=== PATIENT | male | born 1970 | race Caucasian/White ===

== ENCOUNTER 2017-02-01 21:57 | Emergency (ER) | payer SELFPAY ==
--- NOTE | 2017-02-01 22:28 | ERPHSYRPT ---
- History of Present Illness Time Seen by Provider: 02/01/17 22:02 Source: patient, family Exam Limitations: no limitations Patient Subjective Stated Complaint: pt states hes been having pain in his lower back increasing thru the day Triage Nursing Assessment: pt alert and oriented, answers questions approp. pt ambulatory with with steady gait noted. respirations nonlabored with lungs cta. lower ext strength wnl. pedal pulses, cap refil, and sensations wnl. Physician History: States he rode motorcycle yesterday, with pain onset today. No lifting, straining or stressful iodaclrvq2o on his back. He took a friend's Morphine and Xanax RN [facility]. Timing/Duration: today Method of Injury: unknown Quality: sharp Back Pain Location: lumbar spine Severity of Pain-Max: moderate Severity of Pain-Current: moderate Modifying Factors: Improves With: movement Associated Symptoms: denies symptoms, lower back pain, No urinary incontinence, No loss of bowel control, No problems urinating, No numbness in legs/feet, No weakness, No sensory/motor loss, No tingling in legs/feet, No muscle spasms Previous symptoms: no prior history Allergies/Adverse Reactions: No Known Drug Allergies Allergy (Unverified 02/01/17 23:17) Home Medications: No Home Meds 1 ea UD 02/01/17 [History] Hx Tetanus, Diphtheria Vaccination/Date Given: Yes Hx Influenza Vaccination/Date Given: No Hx Pneumococcal Vaccination/Date Given: No Immunizations Up to Date: Yes - Review of Systems Constitutional: No Symptoms Eyes: No Symptoms Ears, Nose, & Throat: No Symptoms Respiratory: No Symptoms Cardiac: No Symptoms Abdominal/Gastrointestinal: No Symptoms Genitourinary Symptoms: No Symptoms Musculoskeletal: Back Pain Skin: No Symptoms Neurological: No Symptoms Psychological: No Symptoms Endocrine: No Symptoms Hematologic/Lymphatic: No Symptoms Immunological/Allergic: No Symptoms - Past Medical History Pertinent Past Medical History: No - Past Surgical History Past Surgical History: Yes Gastrointestinal: Hemorrhoidectomy - Social History Smoking Status: Current every day smoker How long have you smoked: 20yrs Exposure to second hand smoke: Yes Drug Use: narcotics Patient Lives Alone: No - Nursing Vital Signs Temperature: 98.2 F Temperature Source: Oral Pulse Rate: 90 Respiratory Rate: 18 Pain Intensity: 10 - Physical Exam General Appearance: mild distress Eye Exam: eyes nml inspection Ears, Nose, Throat Exam: normal ENT inspection, pharynx normal Neck Exam: normal inspection, non-tender, supple, full range of motion Respiratory Exam: normal breath sounds, lungs clear, airway intact Cardiovascular Exam: regular rate/rhythm, normal heart sounds, normal peripheral pulses Gastrointestinal Exam: soft, normal bowel sounds Back Exam: normal inspection, normal range of motion, CVA tenderness, No vertebral tenderness Extremity Exam: normal inspection, normal range of motion, pelvis stable Neurologic Exam: alert, oriented x 3, cooperative Skin Exam: normal color, warm, dry SpO2 Interpretation: normal SpO2: 98 Oxygen Delivery: Room Air - Course Nursing assessment & vital signs reviewed: Yes - Radiology Exams L-Spine X-ray Interpretation: Interpreted by me, Reviewed by me, Negative, Nml Alignment Ordered Tests: Active Orders 24 hr Category Date Time Status Clean Catch Urine Specimen STAT Care 02/01/17 22:23 Inactive cath [Cath for Specimen-Straight] STAT Care 02/01/17 22:56 Active LUMBAR COMPLETE (MIN 4 VIEWS) Stat Exams 02/01/17 22:24 Taken CULTURE,URINE Stat Lab 02/01/17 22:59 Received UA W/ MICROSCOPIC Stat Lab 02/01/17 22:59 Completed Urine Triage Profile Stat Lab 02/01/17 22:59 Completed Lab/Rad Data: Laboratory Results 02/01/17 02/01/17 Range/Units 22:59 22:59 Ur Collection Type CLEAN CATCH Urine Color YELLOW (YELLOW) Urine Appearance SLIGHTLY CLOUDY (CLEAR) Urine pH 5.0 (5-6) Ur Specific [place] 1.020 (1.005-1.025) Urine Protein NEGATIVE (Negative) Urine Glucose (UA) NEGATIVE (NEGATIVE) mg/dL Urine Ketones TRACE (NEGATIVE) Urine Nitrite NEGATIVE (NEGATIVE) Urine Bilirubin SMALL (NEGATIVE) Urine Urobilinogen 0.2 (0-1) mg/dL Urine WBC (Auto) NEGATIVE (NEGATIVE) Urine RBC (Auto) TRACE-INTACT (0-5) Brendan/ul Urine Microscopic RBC 5-10 (0-2) /HPF Urine Microscopic WBC 5-10 (0-5) /HPF Ur Epithelial Cells MODERATE (FEW) /HPF Urine Bacteria FEW (NEGATIVE) /HPF Urine Mucus MODERATE (NEGATIVE) /HPF Urine Opiates Level POS. (NEGATIVE) Ur Methadone NEG. (NEGATIVE) Urine Barbiturates NEG. (NEGATIVE) Ur Phencyclidine (PCP) NEG. (NEGATIVE) Urine Amphetamine POS. (NEGATIVE) U Benzodiazepine Level POS. (NEGATIVE) Urine Cocaine NEG. (NEGATIVE) Urine Marijuana (THC) NEG. (NEGATIVE) Specimen Received 02/01/17 2300 - Progress Progress: improved Will see patient in: other (PCP 1 week) Counseled pt/family regarding: diagnosis, need for follow-up, rad results - Departure Time of Disposition: 22:45 Departure Disposition: Home Clinical Impression: Lumbar strain Qualifiers: Encounter type: initial encounter Qualified Code(s): S39.012A - Strain of muscle, fascia and tendon of lower back, initial encounter Condition: Stable Critical Care Time: No Referrals: DOCTOR,NO FAMILY [Primary Care Provider] - Instructions: Low Back Pain Prescriptions: Cyclobenzaprine HCl 10 mg [Cyclobenzaprine 10 MG] 10 mg PO TID PRN #12 tab Naproxen [Naprosyn] 500 mg PO BID #20 tablet
[2017-02-01 23:34] LABS: Bacteria FEW /HPF (NEGATIVE); COMPLETE URINE MICROSCOPIC? YES; Collection Type CLEAN CATCH; Epithelial Cells MODERATE /HPF (FEW); Mucus MODERATE /HPF (NEGATIVE)
[2017-02-01 23:35] LABS: ADD URINE CULTURE? YES (NO)
[2017-02-01 23:48] VITALS: BP 104/76; PULSE 96; O2SAT 96
--- NOTE | 2017-02-02 08:48 | XRAY ---
Indication: Low back pain. No known injury. Comparison: None 5 views of the lumbar spine demonstrates 4 lumbar vertebral segments with hypoplastic T12 ribs in normal alignment with minimal/mild L2-S1 degenerative disc disease as evidenced by disc space narrowing and endplate spurring. Also mild bilateral L4-S1 degenerative facet arthropathy and minimal aortic calcifications. No acute fracture, subluxation, or soft tissue abnormalities. Impression: Nonacute lumbar spine with chronic features.
== END 2017-02-01 23:48 | disposition home or self-care (01) ==
LOC: ED 21:57
DX: S39.012A Strain of muscle, fascia and tendon of lower back, initial encounter (principal); M54.5 Low back pain; X50.1XXA Overexertion from prolonged static or awkward postures, initial encounter
CPT/HCPCS: 72110; 80307; 81000; 87086; 99283; 99284; P9612

== ENCOUNTER 2022-10-26 17:03 | Emergency (ER) | payer OTHER ==
[2022-10-26] MEDS ORDERED: XYLOCAINE 1% HCL 20 ML MDV ONE ×2 (17:11→17:21)
[2022-10-26] MEDS ORDERED: XYLOCAINE 1% HCL 20 ML MDV IJ ONE (17:19)
[2022-10-26 17:20] VITALS: O2SAT 97
[2022-10-26] MEDS ORDERED: BACIGUENT PACKET TP ONE (17:20)
[2022-10-26] MEDS ORDERED: BACIGUENT PACKET ONE (17:22)
--- NOTE | 2022-10-26 17:48 | ERPHSYRPT ---
- History of Present Illness Source: patient Exam Limitations: no limitations Patient Subjective Stated Complaint: Laceration to left thumb. Patient states that a grinder and plater wheel blew apart on him and a piece of the grinding wheel was sticking out of his thumb, patient pulled the piece out of his thumb himself. Triage Nursing Assessment: Patient ambulated back to ER with gauze covering his thumb. Gauze removed. Laceration noted to left thumb measuring 0.5cm X 2.5cm. Small amount of active bleeding noted. Patient is able to feel nurse pressing on the end of his thumb. Patient states he can bend his thumb down but it is very hard for him to bring it back up once he bends it. Physician History: 52 yo WM w L 1st digit dorsal laceration after getting it caught in a grinder and plater at home. Pt is R handed and denies other injuries. Laceration is over the IP joint, and he is unable to extend distal phalange.Good distal capillary return and sensation. Tdap is up to date. Laceration 2.5 cm Occurred: just prior to arrival Method of Injury: incised (Account Development Specialist vs L 1st digit) Quality: constant Severity of Pain-Max: severe Severity of Pain-Current: moderate Extremities Pain Location: thumb: left Modifying Factors: Improves With: movement Associated Symptoms: none Allergies/Adverse Reactions: No Known Drug Allergies Allergy (Verified 10/26/22 17:08) Home Medications: No Home Meds [No Home Meds] 1 [facility] UD 02/01/17 [History] Hx Tetanus, Diphtheria Vaccination/Date Given: Yes Hx Influenza Vaccination/Date Given: No Hx Pneumococcal Vaccination/Date Given: No Immunizations Up to Date: Yes Travel Risk - International Travel Have you traveled outside of the country in past 3 weeks: No - Coronavirus Screening Are you exhibiting any of the following symptoms?: No Close contact with a COVID-19 positive Pt in past 14-21 Days: No - Vaccine Status Have you recieved a Covid-19 vaccination: No - Review of Systems Constitutional: No Symptoms Eyes: No Symptoms Ears, Nose, & Throat: No Symptoms Respiratory: No Symptoms Cardiac: No Symptoms Abdominal/Gastrointestinal: No Symptoms Genitourinary Symptoms: No Symptoms Skin: No Symptoms Neurological: No Symptoms Psychological: No Symptoms Endocrine: No Symptoms Hematologic/Lymphatic: No Symptoms Immunological/Allergic: No Symptoms - Past Medical History Pertinent Past Medical History: Yes Cardiac History: Hypertension - Past Surgical History Past Surgical History: Yes Gastrointestinal: Hemorrhoidectomy Musculoskeletal: Joint Replacement Other Surgical History: left hip - Social History Smoking Status: Current every day smoker How long have you smoked: 20yrs Exposure to second hand smoke: Yes Drug Use: none Patient Lives Alone: No - Nursing Vital Signs Nursing Vital Signs: Initial Vital Signs Temperature 97.5 F 10/26/22 17:10 Pulse Rate 90 10/26/22 17:10 Respiratory Rate 18 10/26/22 17:10 Blood Pressure 198/134 10/26/22 17:10 O2 Sat by Pulse Oximetry 97 10/26/22 17:10 Pain Scale Pain Intensity 0 Hypertensive - Physical Exam General Appearance: no apparent distress Eyes, Ears, Nose, Throat Exam: normal ENT inspection, TMs normal, pharynx normal, moist mucous membranes Neck Exam: normal inspection, non-tender, supple, full range of motion, No Brudzinski, No Kernig's, No meningismus, No carotid bruit Cardiovascular/Respiratory Exam: normal breath sounds, regular rate/rhythm, heart sounds normal Abdominal Exam: non-tender, soft Back Exam: normal inspection, normal range of motion, No vertebral tenderness Shoulder Exam: normal inspection, non-tender, no evidence of injury Elbow/Forearm Exam: normal inspection Wrist Exam: normal inspection Hand Exam: laceration (2cm laceration over IP joint/flexor tendon injury, unable to extend distal phalanyx/Good distal capillary return and sensation) Neuro/Tendon Exam: normal sensation, responds to pain, tendon injury visualized, No sensory deficit Mental Status Exam: alert, oriented x 3, cooperative Skin Exam: normal color, warm, dry, No rash SpO2 Interpretation: normal SpO2: 97 O2 Delivery: Room Air Procedures - Laceration/Wound Repair Left Dorsal Finger Time of Procedure: 18:18 Wound Location: Left (L dorsal IP laceration 2cm) Wound Length (cm): 2 Wound's Depth, Shape: linear Wound Explored: foreign body removed Irrigated: Yes Hibiclens Prep: Yes Anesthesia: digital block, 1% Lidocaine Volume Anesthetic (ccs): 3 Wound Debrided: extensive Wound Repaired With: sutures Suture Size/Type: 4-0 (4.0 Ethilon x7) Number of Sutures: 7 Layer Closure?: No Sterile Dressing Applied?: Yes Splint Applied?: Yes Type of Splint Applied: Long foam splint applied L 1st digit per nursing/NVI - Course Nursing assessment & vital signs reviewed: Yes - Radiology Exams Hand X-ray Interpretation: Interpreted by me (L 1st digit distal phalange fx/FB 2nd digit which pt states is old) Ordered Tests: Active Orders 24 hr Category Date Time Status Splint STAT Care 10/26/22 18:14 Active Wound Care STAT Care 10/26/22 17:19 Active HAND (MINIMUM 3 VIEWS) Stat Exams 10/26/22 17:14 Taken Medication Summary Discontinued Medications Generic Name Dose Route Start Last Admin Trade Name Freq PRN Reason Stop Dose Admin Hydrocodone Bitart/Acetaminophen 2 tab 10/26/22 18:47 10/26/22 18:50 Hydrocodone/Apap 5/325 1 Tab Tablet PO 10/26/22 18:48 2 tab SENT HOME W/ PATIENT ONE Administration Hydrocodone Bitart/Acetaminophen Confirm 10/26/22 18:50 Hydrocodone/Apap 5/325 1 Tab Tablet Administered 10/26/22 18:51 Dose 2 tab .ROUTE .STK-MED ONE Amlodipine Besylate 5 mg 10/26/22 18:46 10/26/22 18:48 Amlodipine Besylate 5 Mg Tablet PO 10/26/22 18:47 5 mg STAT ONE Administration Amlodipine Besylate Confirm 10/26/22 18:47 Amlodipine Besylate 5 Mg Tablet Administered 10/26/22 18:48 Dose 5 mg .ROUTE .STK-MED ONE Amoxicillin/Clavulanate Potassium 875 mg 10/26/22 18:47 10/26/22 18:48 Amox Tr/Potassium Clavulanate 875 Mg Tablet PO 10/26/22 18:48 875 mg STAT ONE Administration Amoxicillin/Clavulanate Potassium Confirm 10/26/22 18:47 Amox Tr/Potassium Clavulanate 875 Mg Tablet Administered 10/26/22 18:48 Dose 875 mg .ROUTE .STK-MED ONE Bacitracin Zinc 0.9 each 10/26/22 17:20 10/26/22 17:22 Bacitracin Packet 1 Each Pckt TP 10/26/22 17:21 0.9 each STAT ONE Administration Bacitracin Zinc Confirm 10/26/22 17:22 Bacitracin Packet 1 Each Pckt Administered 10/26/22 17:23 Dose 1 each .ROUTE .STK-MED ONE Lidocaine HCl Confirm 10/26/22 17:11 Lidocaine Hcl 1% 20 Ml Mdv 20 Ml Ml Administered 10/26/22 17:12 Dose 3 ml .ROUTE .STK-MED ONE Lidocaine HCl 5 ml 10/26/22 17:19 10/26/22 17:22 Lidocaine Hcl 1% 20 Ml Mdv 20 Ml Ml IJ 10/26/22 17:20 5 ml STAT ONE Administration Lidocaine HCl Confirm 10/26/22 17:21 Lidocaine Hcl 1% 20 Ml Mdv 20 Ml Ml Administered 10/26/22 17:22 Dose 2 ml .ROUTE .STK-MED ONE - Progress Progress: improved Progress Note: 10/26/22 18:59 2cm laceration L dorsal IP joint Wound closed to obtain hemostasis Irrigated and cleansed per nursing Spoke w Dr. Whitney, wants pt to call office in AM for appointment Pt will f/u w Dr. Whitney or Ortho clinic in AM Pt told that he needs to f/u since his extensor tendon is transected and because wound is high risk for infection Long foam splint per nursing/NVI Pt refused all pain meds during stay Augmentin 875mg po x1/[place] 5-325 x2 take home/Norvsc 5mg Pt has long standing HTN wo treatment-Norvasc started Pt has health insurance and no barrier to obtain definitive care No food or housing insecurities Additional history per Counseled pt/family regarding: diagnosis, need for follow-up, rad results - Departure Departure Disposition: Home Clinical Impression: Finger fracture, left, Tendon laceration, Hypertension Condition: Stable Critical Care Time: No Referrals: KIMBERLI MARTINEZ MD [Primary Care Provider] - Follow up/PCP as directed Instructions: Wound Care (DC), Laceration Repair With Stitches (DC) Additional Instructions: Follow up with Ortho clinic 8-10 M-Fr or [facility] Hand surgeon Dr. Whitney [phone] Pain meds as needed(Use a stool softener with pain meds) Start Augmentin twice a day Start Norvasc for blood pressure Follow up with a family MD for blood pressure Prescriptions: Hydrocodone/Acetaminophen [Hydrocodone-Acetamin 5-325 mg] 1 tab PO Q4HPRN PRN #7 tablet MDD 6 PRN Reason: Pain Amox Tr/[place]ass Clav. 875 mg [Augmentin 875-125 Tablet] 875 mg PO BID 10 Days #20 tablet Amlodipine Besylate 5 mg [Norvasc 5 mg] 5 mg PO DAILY #30 tablet
[2022-10-26 18:38] VITALS: BP 181/109; PULSE 88
[2022-10-26] MEDS ORDERED: NORVASC 5 MG PO ONE (18:46)
[2022-10-26] MEDS ORDERED: NORVASC 5 MG ONE (18:47)
[2022-10-26] MEDS ORDERED: Augmentin 875-125 Tablet PO ONE (18:47)
[2022-10-26] MEDS ORDERED: NORCO 5/325 MG PO ONE (18:47)
[2022-10-26] MEDS ORDERED: Augmentin 875-125 Tablet ONE (18:47)
[2022-10-26] MEDS ORDERED: NORCO 5/325 MG ONE (18:50)
--- NOTE | 2022-10-27 08:26 | XRAY ---
Indication: Thumb injury/laceration. Comparison: None 3 view left hand demonstrates tiny old nonunited 1st finger tuft fracture, 3 mm soft tissue foreign body anterior to 2nd PIP, and ring base 4th finger. No other bony, articular, or soft tissue abnormalities.
== END 2022-10-26 19:00 | disposition home or self-care (01) ==
LOC: ED 17:03
DX: S66.222A Laceration of extensor muscle, fascia and tendon of left thumb at wrist and hand level, initial encounter (principal); S61.012A Laceration without foreign body of left thumb without damage to nail, initial encounter; W20.8XXA Other cause of strike by thrown, projected or falling object, initial encounter; S62.522K Displaced fracture of distal phalanx of left thumb, subsequent encounter for fracture with nonunion; I10 Essential (primary) hypertension; Z28.310 Unvaccinated for COVID-19; Z72.0 Tobacco use
CPT/HCPCS: 12001; 73130; 96372; 99283; A9270-GY

== ENCOUNTER 2023-08-27 21:55 | Emergency (ER) | payer OTHER ==
[2023-08-27 22:24] VITALS: RESP 18; TEMP 98.6
[2023-08-27 23:04] VITALS: BP 166/100; PULSE 74; O2SAT 98
[2023-08-27] MEDS ORDERED: HYDROCODONE-ACETAMIN 10-325 MG PO STA (23:10)
[2023-08-27] MEDS ORDERED: TORAdol 30 mg Injection IM ONE (23:10)
--- NOTE | 2023-08-27 23:15 | ERPHSYRPT ---
- History of Present Illness Time Seen by Provider: 08/27/23 22:15 Source: patient Exam Limitations: no limitations Patient Subjective Stated Complaint: pt reports while working at home his left foot got stuck between two pieces of wood causing him to fall and injure his l eft ankle. pt states he continued to walk on his injured ankle for several hours and the pain got worse. pt denies any other injuries at this time. Triage Nursing Assessment: pt is aox3, appears in pain, pupils perrl, afebrile, resps easy and non labored, cap refill < 3 seconds, radial pulses strong and equal, pt skin pink warm dry. pt with moderate swelling to the left lateral ankle, skin is intact, pedal pulses intact bilat, sensation is normal, ROM limited to LLE due to pain. 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 Patient reports moderate to severe sharp pain in the left lateral ankle with swelling and difficulty ambulation. No injury anywhere else. Note tingling or numbness in the toes. Allergies/Adverse Reactions: No Known Drug Allergies Allergy (Verified 08/27/23 22:24) Hx Tetanus, Diphtheria Vaccination/Date Given: Yes Hx Influenza Vaccination/Date Given: No Hx Pneumococcal Vaccination/Date Given: No Immunizations Up to Date: Yes Travel Risk - International Travel Have you traveled outside of the country in past 3 weeks: No - Coronavirus Screening Are you exhibiting any of the following symptoms?: No Close contact with a COVID-19 positive Pt in past 14-21 Days: No - Vaccine Status Have you recieved a Covid-19 vaccination: No - Review of Systems Constitutional: No Symptoms Ears, Nose, & Throat: No Symptoms Respiratory: No Symptoms Cardiac: No Symptoms Abdominal/Gastrointestinal: No Symptoms Musculoskeletal: Fall, Injury, Joint Pain, Joint Swelling Skin: No Symptoms Neurological: No Symptoms Endocrine: No Symptoms - Past Medical History Pertinent Past Medical History: Yes Neurological History: Migraines Cardiac History: Hypertension Respiratory History: No Pertinent History Endocrine Medical History: No Pertinent History Musculoskeletal History: Arthritis, Fractures Other Medical History: PSH: L BARBIE, HEMRROID SURGERY - Past Surgical History Past Surgical History: Yes Gastrointestinal: Hemorrhoidectomy Musculoskeletal: Joint Replacement Other Surgical History: left hip - Social History Smoking Status: Current every day smoker How long have you smoked: 20yrs Exposure to second hand smoke: Yes Drug Use: none Patient Lives Alone: No - Nursing Vital Signs Nursing Vital Signs: Initial Vital Signs Temperature 98.6 F 08/27/23 22:11 Pulse Rate 81 08/27/23 22:11 Respiratory Rate 18 08/27/23 22:11 Blood Pressure 201/109 08/27/23 22:11 O2 Sat by Pulse Oximetry 95 08/27/23 22:11 Pain Scale Pain Intensity 10 - Physical Exam General Appearance: no apparent distress, alert Neck Exam: normal inspection, full range of motion Cardiovascular/Respiratory Exam: normal breath sounds, regular rate/rhythm Legs Exam: bilateral leg: non-tender, normal inspection, normal range of motion Knees Exam: bilateral knee: non-tender, normal inspection, normal range of motion, no evidence of injury Ankle Exam: right ankle: non-tender, normal inspection, normal range of motion, no evidence of injury, left ankle: pain, soft tissue tenderness, swelling Foot Exam: bilateral foot: non-tender, normal inspection, normal range of motion , no evidence of injury Neuro/Tendon Exam: normal sensation, normal motor functions, normal tendon functions Mental Status Exam: alert, oriented x 3, cooperative Skin Exam: normal color SpO2 Interpretation: normal SpO2: 98 O2 Delivery: Room Air Ordered Tests: Active Orders 24 hr Category Date Time Status ANKLE (3 VIEWS) Stat Exams 08/27/23 22:14 Taken Medication Summary Discontinued Medications Generic Name Dose Route Start Last Admin Trade Name Mary PRN Reason Stop Dose Admin Hydrocodone Bitart/Acetaminophen 1 tablet 08/27/23 23:10 Hydrocodone/Acetamin 10-325 Mg Tablet PO 08/27/23 23:11 ONCE STA Ketorolac Tromethamine 30 mg 08/27/23 23:10 Ketorolac Tromethamine 30 Mg/Ml Inj IM 08/27/23 23:11 STAT ONE - Progress Progress: pain not gone completely, re-examined Progress Note: 08/27/23 23:22 53 years old is evaluated in the ER with chief complaint of left ankle pain and swelling after he twisted while working at home. He is given symptomatic treatment for pain. X-rays are negative for acute fracture dislocation reviewed by me, official report is pending. I believe patient has ankle sprain, recommended ice, Aircast crutches and outpatient podiatry/orthopedics follow-up. Counseled pt/family regarding: diagnosis, need for follow-up, rad results Medical Desision Making - Diagnostic Testing Diagnostic test were ordered, analyzed, and reviewed by me: Yes Radiological Interpretation: Interpreted by me, Reviewed by me - Risk of complications The pt has a mod risk of morbidity or mortality based on: Need for prescription drug management - Departure Departure Disposition: Home Clinical Impression: Left ankle sprain Condition: Stable Critical Care Time: No Referrals: KIMBERLI MARTINEZ MD [Primary Care Provider] - Follow up/PCP as directed ORTHO - MONTSE WILLIAMSON NP [NON-STAFF PHY W/O PRIVILEGES] - Follow up/PCP as directed (Tomorrow for reevaluation) Instructions: Foot Sprain (DC) Additional Instructions: Intermittent ice application. Tylenol/ibuprofen as needed. Keep it elevated. Weightbearing as tolerated. Follow-up with orthopedic/podiatry for reevaluation in the morning. Prescriptions: Ibuprofen 600 mg PO Q6HPRN PRN 10 Days #20 tablet PRN Reason: Pain
[2023-08-27] MEDS ORDERED: HYDROCODONE-ACETAMIN 10-325 MG ONE (23:25)
[2023-08-27] MEDS ORDERED: TORAdol 30 mg Injection ONE (23:25)
--- NOTE | 2023-08-28 08:33 | XRAY ---
Indication: Pain following injury. Comparison: None 3 view left ankle demonstrates tiny lateral malleolus tip heterotopic ossification and mild anterior lateral soft tissue swelling. No other bony, articular, or soft tissue abnormalities.
== END 2023-08-27 23:40 | disposition home or self-care (01) ==
LOC: ED 21:55
DX: S93.402A Sprain of unspecified ligament of left ankle, initial encounter (principal); W23.1XXA Caught, crushed, jammed, or pinched between stationary objects, initial encounter; I10 Essential (primary) hypertension; Z28.310 Unvaccinated for COVID-19; Z72.0 Tobacco use
CPT/HCPCS: 73610; 96372; 99283; J1885; A9270-GY

== ENCOUNTER 2024-05-17 06:49 | Emergency (ER) | payer OTHER ==
--- NOTE | 2024-05-17 07:08 | ERPHSYRPT ---
- History of Present Illness Time Seen by Provider: 05/17/24 07:07 Source: patient, family Exam Limitations: no limitations Physician History: This is a 53-year-old white male patient who arrives to the emergency room with his spouse by private vehicle secondary to enlarging neck mass presumed to be known thyroid mass. Patient was diagnosed with an enlarging thyroid in February 2024 based on an ultrasound. He was placed on propranolol. Patient also has a history of hypertension. Patient admits to not taking his medication as prescribed. Patient's primary care provider is Dr. Martinez. Patient has not seen an apparel patternmaker or ENT. Patient and patient's spouse are concerned that this mass is enlarging. He is able to handle his secretions. He is not short of breath. However, he has noticed when he turns a certain way he can feel the mass and he says at times he almost feels as though it partially cuts off his airway. Patient denies chest pain. Patient denies visual changes. Patient denies headache. Patient's systolic blood pressure on arrival to the emergency department is over 200 mmHg. This patient has a history of hypertension, migraine headaches, arthritis. He is a daily smoker of tobacco cigarettes. Timing/Duration: worse, other (Several months) Quality: other (Pressure) Severity: mild Location: neck Possible Causes: other (Margin thyroid gland) Associated Symptoms: swelling/mass/lumps (Enlarging), No difficulty breathing, No headache, No sore throat Allergies/Adverse Reactions: No Known Drug Allergies Allergy (Verified 08/27/23 22:24) Home Medications: Propranolol HCl [Propranolol HCl ER] 120 mg PO DAILY 05/17/24 [History] Hx Tetanus, Diphtheria Vaccination/Date Given: Yes Hx Influenza Vaccination/Date Given: No Hx Pneumococcal Vaccination/Date Given: No Travel Risk - International Travel Have you traveled outside of the country in past 3 weeks: No - Emerging Infectious Disease Are you exhibiting symptoms associated with any current EIDs: No - Review of Systems Constitutional: No Symptoms Eyes: No Symptoms Ears, Nose, & Throat: No Symptoms Respiratory: No Symptoms, No Cough, No Dyspnea, No Wheezing Cardiac: No Symptoms Abdominal/Gastrointestinal: No Symptoms Genitourinary Symptoms: No Symptoms Musculoskeletal: No Symptoms Skin: No Symptoms Neurological: No Symptoms Psychological: No Symptoms Endocrine: No Symptoms Hematologic/Lymphatic: No Symptoms Immunological/Allergic: No Symptoms All Other Systems: Reviewed and Negative - Past Medical History Pertinent Past Medical History: Yes Neurological History: Migraines Cardiac History: Hypertension Respiratory History: No Pertinent History Endocrine Medical History: No Pertinent History Musculoskeletal History: Arthritis, Fractures Other Medical History: PSH: L BARBIE, HEMRROID SURGERY - Past Surgical History Past Surgical History: Yes Gastrointestinal: Hemorrhoidectomy Musculoskeletal: Joint Replacement Other Surgical History: left hip - Social History Smoking Status: Current every day smoker How long have you smoked: 20yrs Exposure to second hand smoke: Yes Drug Use: none Patient Lives Alone: No - Nursing Vital Signs Nursing Vital Signs: Initial Vital Signs Temperature 97.3 F 05/17/24 06:56 Pulse Rate 103 H 05/17/24 06:56 Respiratory Rate 18 05/17/24 06:56 Blood Pressure 196/119 05/17/24 06:56 O2 Sat by Pulse Oximetry 100 05/17/24 06:56 Pain Scale Pain Intensity 0 - Physical Exam General Appearance: no apparent distress, alert, anxiety Eye Exam: PERRL/EOMI, eyes nml inspection Ears, Nose, Throat Exam: normal ENT inspection, moist mucous membranes Neck Exam: non-tender, supple, full range of motion, mass (Enlarged thyroid gland), thyromegaly Respiratory Exam: normal breath sounds, lungs clear, airway intact, No chest tenderness, No respiratory distress Cardiovascular Exam: regular rate/rhythm, normal heart sounds, normal peripheral pulses Gastrointestinal/Abdomen Exam: soft, normal bowel sounds, No tenderness Rectal Exam: not done Back Exam: normal inspection, normal range of motion, No CVA tenderness Extremity Exam: normal inspection, normal range of motion, pelvis stable Neurologic Exam: alert, oriented x 3, cooperative, 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, normal mood/affect, nml cerebellar function, nml station & gait, sensation nml Skin Exam: normal color, warm, dry Lymphatic Exam: No adenopathy SpO2 Interpretation: normal O2 Delivery: Room Air - Course Nursing assessment & vital signs reviewed: Yes Ordered Tests: Active Orders 24 hr Category Date Time Status IV Insertion STAT Care 05/17/24 07:24 Active NECK WO CONTRAST [CT] Stat Exams 05/17/24 07:25 Completed CBC W DIFF Stat Lab 05/17/24 07:33 Completed CMP Stat Lab 05/17/24 07:33 Completed TSH, 3RD Generation Stat Lab 05/17/24 07:33 Completed Medication Summary Discontinued Medications Generic Name Dose Route Start Last Admin Trade Name Mary PRN Reason Stop Dose Admin Labetalol HCl 10 mg 05/17/24 09:23 05/17/24 09:26 Labetalol Hcl 20 Mg/4 Ml Disp.Syringe IV 05/17/24 09:24 10 mg STAT ONE Administration Labetalol HCl Confirm 05/17/24 09:25 Labetalol Hcl 20 Mg/4 Ml Disp.Syringe Administered 05/17/24 09:26 Dose 20 mg IV .STK-MED ONE Lab/Rad Data: Laboratory Result Diagrams 05/17/24 07:33 05/17/24 07:33 Laboratory Results 05/17/24 05/17/24 05/17/24 Range/Units 07:33 07:33 07:33 WBC 8.4 (4.23-9.07) x10^3/uL RBC 4.52 L (4.63-6.08) x10^6/uL Hgb 13.6 L (13.7-17.5) g/dL Hct 41.3 (40.1-51.0) % MCV 91.4 (79.0-92.2) fL MCH 30.1 (25.7-32.2) pg MCHC 32.9 (32.3-36.5) g/dL RDW 12.7 (11.6-14.4) % Plt Count 276 (163-337) x10^3/uL MPV 9.7 (9.4-12.4) fL Gran % 73.4 H (34.0-67.9) % Immature Gran % (Auto) 0.6 H (0.001-0.429) % Nucleat RBC Rel Count 0.0 (0.00-0.2) % Eos # (Auto) 0.40 (0.04-0.54) x10^3/uL Immature Gran # (Auto) 0.05 H (0.001-0.031) x10^3u/L Absolute Lymphs (auto) 1.07 L (1.32-3.57) x10^3/uL Absolute Monos (auto) 0.64 (0.30-0.82) x10^3/uL Absolute Nucleated RBC 0.00 (0.00-0.012) x10^3u/L Lymphocytes % 12.8 L (21.8-53.1) % Monocytes % 7.7 (5.3-12.2) % Eosinophils % 4.8 (0.8-7.0) % Basophils % 0.7 (0.2-1.2) % Absolute Granulocytes 6.13 H (1.78-5.38) x10^3/uL Basophils # 0.06 (0.01-0.08) x10^3/uL Sodium 139 (135-145) mmol/L Potassium 3.7 (3.5-5.1) mmol/L Chloride 102 (98-107) mmol/L Carbon Dioxide 26 (22-30) mmol/L Anion Gap 15.1 H (5-15) MEQ/L BUN 20 (9-20) mg/dL Creatinine 1.15 (0.66-1.25) mg/dL Estimated GFR 76.6 ML/MIN Glucose 149 H (74-106) mg/dL Calcium 9.2 (8.4-10.2) mg/dL Total Bilirubin 0.40 (0.2-1.3) mg/dL AST 27 (17-59) U/L ALT 25 (0-50) U/L Alkaline Phosphatase 65 (38-126) U/L Serum Total Protein 8.0 (6.3-8.2) g/dL Albumin 4.3 (3.5-5.0) g/dL Free T4 0.94 (0.78-2.19) ng/dL TSH 3rd Generation 11.417 H (0.470-4.680) mIU/L - Progress Progress: unchanged Progress Note: 05/17/24 07:39 Medical decision making and the assignment of moderate complexity to this patient's medical issue today is based on review of the patient's past medical history, review of outside ultrasound report, review of the patient's medication list, reviewed patient drug allergy list, history present illness and physical findings on examination. The workup in this patient includes CBC, CMP, intravenous line placement, initial dose of labetalol intravenously, TSH, T4, thyroid peroxidase level and CT scan of the soft tissue of the neck. We will also attempt to obtain an outpatient appointment to see an apparel patternmaker. Differential diagnosis includes but is not limited to diffuse thyroid gland enlargement, benign thyroid gland tumor, malignant thyroid gland tumor, enlarging adenopathy 05/17/24 09:18 I interpreted the patient's laboratory data results. Based on a normal free T4 and a significantly elevated TSH, the patient appears to have hypothyroidism. CT scan of the neck was interpreted by the radiologist and I reviewed the impression. The impression states diffuse thyromegaly. There is a left carotid calcifications. There is right maxillary sinus disease. There is bilateral apical subpleural cystic changes. There is a normal epiglottis. The supra and infraglottic airway is widely patent. The remainder of the study is negative. 05/17/24 09:49 [facility] endocrinology was contacted. Their office will contact the patient to arrange an appointment for him. Patient is told to call his primary care provider today to discuss his thyroid issue and blood pressure concerns. Counseled pt/family regarding: lab results, diagnosis, need for follow-up, rad results Medical Desision Making - Independent Historian Additional History obtained from: Spouse - Diagnostic Testing Diagnostic test were ordered, analyzed, and reviewed by me: Yes Radiological Interpretation: Reviewed by me, Teleradiologist Report - Risk of complications Low Risk: Low risk of morbidity from additional dx testing or treatment - Departure Departure Disposition: Home Clinical Impression: Hypothyroidism, Thyromegaly, Hypertension Condition: Stable Critical Care Time: No Referrals: KIMBERLI MARTINEZ MD [Primary Care Provider] - Follow up/PCP as directed Additional Instructions: Take all your medications as prescribed including the blood pressure medication you should be taking. Call your primary care provider today, 05/17/2024, to make arranges for follow-up appointment for further evaluation and management and to discuss your thyroid and blood pressure issues. Follow-up with the [facility] apparel patternmaker specialist, by phone, on 05/20/2024, if you have not heard from them today.
[2024-05-17 07:15] VITALS: TEMP 97.3; O2SAT 100
[2024-05-17 07:36] LABS: Absolute Neutrophil Ct (ANC) 6.13 x10^3/uL (1.78-5.38); BASOPHIL % 0.7 % (0.2-1.2); Basophil (Absolute #) 0.06 x10^3/uL (0.01-0.08); Eosinophil % 4.8 % (0.8-7.0); Hematocrit 41.3 % (40.1-51.0); Hemoglobin 13.6 g/dL (13.7-17.5); IMMATURE GRAN # 0.05 x10^3u/L (0.001-0.031); IMMATURE GRAN % 0.6 % (0.001-0.429); Lymphocyte (Absolute #) 1.07 x10^3/uL (1.32-3.57); Lymphocytes % 12.8 % (21.8-53.1); Mean Cell Volume 91.4 fL (79.0-92.2); Mean Corpuscular Hemoglobin 30.1 pg (25.7-32.2); Mean Corpuscular Hgb Concent. 32.9 g/dL (32.3-36.5); Mean Platelet Volume 9.7 fL (9.4-12.4); Monocyte (Absolute #) 0.64 x10^3/uL (0.30-0.82); Monocytes % 7.7 % (5.3-12.2); Neutrophil % 73.4 % (34.0-67.9); Platelet Count 276 x10^3/uL (163-337); Red Blood Count 4.52 x10^6/uL (4.63-6.08); Red Cell Distribution Width 12.7 % (11.6-14.4); White Blood Count 8.4 x10^3/uL (4.23-9.07)
[2024-05-17 08:27] LABS: ALBUMIN 4.3 g/dL (3.5-5.0); ANION GAP 15.1 MEQ/L (5-15); BILIRUBIN,TOTAL 0.4 mg/dL (0.2-1.3); Calcium 9.2 mg/dL (8.4-10.2); Creatinine 1 1.15 mg/dL (0.66-1.25); EST GLOMERULAR FILTRATION RATE 76.6 ML/MIN; Potassium 3.7 mmol/L (3.5-5.1); TSH, 3RD Generation 11.417 mIU/L (0.470-4.680)
--- NOTE | 2024-05-17 09:10 | XRAY ---
Indication: Enlarged thyroid gland. Multiple contiguous axial images obtained through the neck without contrast. Comparison: None Patient is edentulous. Diffuse thyromegaly. Parotid and submandibular glands are bilaterally symmetric. Centimeter and subcentimeter benign-appearing cervical lymph nodes bilaterally. Mild left carotid calcifications. Supra and infraglottic airway are widely patent. Normal epiglottis. Visualized osseous structures intact with minimal multilevel cervical degenerative spondylosis greatest at C3-C4. Mild biapical subpleural cystic changes. Base of brain unremarkable with incidental moderate right maxillary sinus mucosal thickening with fluid leveling. Impression: Diffuse thyromegaly, left carotid calcification, chronic bony findings, biapical subpleural cystic changes, and right maxillary sinus disease. Remaining CT neck without contrast exam is negative.
[2024-05-17] MEDS ORDERED: TRANDATE 20 MG/4 ML SYRINGE IV ONE (09:25)
[2024-05-17] MEDS: TRANDATE 20 MG/4 ML SYRINGE IV ONE (09:26)
[2024-05-17 10:02] VITALS: BP 182/99; PULSE 77; RESP 34
== END 2024-05-17 10:02 | disposition home or self-care (01) ==
LOC: ED 06:49
DX: E01.0 Iodine-deficiency related diffuse (endemic) goiter (principal); I10 Essential (primary) hypertension; Z79.899 Other long term (current) drug therapy; Z72.0 Tobacco use
CPT/HCPCS: 36000; 36415; 70490; 80053; 84439; 84443; 85025; 86376; 96374; 99284

== ENCOUNTER 2024-06-13 05:00 | Observation (INO) | payer OTHER ==
[2024-06-13 05:18] LABS: Absolute Neutrophil Ct (ANC) 5.21 x10^3/uL (1.78-5.38); BASOPHIL % 1.1 % (0.2-1.2); Basophil (Absolute #) 0.09 x10^3/uL (0.01-0.08); Eosinophil % 10.8 % (0.8-7.0); Eosinophil (Absolute #) 0.89 x10^3/uL (0.04-0.54); Hematocrit 41.4 % (40.1-51.0); Hemoglobin 13.7 g/dL (13.7-17.5); IMMATURE GRAN # 0.07 x10^3u/L (0.001-0.031); IMMATURE GRAN % 0.9 % (0.001-0.429); Lymphocyte (Absolute #) 1.21 x10^3/uL (1.32-3.57); Lymphocytes % 14.7 % (21.8-53.1); Mean Cell Volume 91.8 fL (79.0-92.2); Mean Corpuscular Hemoglobin 30.4 pg (25.7-32.2); Mean Corpuscular Hgb Concent. 33.1 g/dL (32.3-36.5); Mean Platelet Volume 9.5 fL (9.4-12.4); Monocyte (Absolute #) 0.75 x10^3/uL (0.30-0.82); Monocytes % 9.1 % (5.3-12.2); Neutrophil % 63.4 % (34.0-67.9); Platelet Count 281 x10^3/uL (163-337); Red Blood Count 4.51 x10^6/uL (4.63-6.08); Red Cell Distribution Width 12.7 % (11.6-14.4); White Blood Count 8.2 x10^3/uL (4.23-9.07)
[2024-06-13 05:30] LABS: ALBUMIN 3.9 g/dL (3.5-5.0); BILIRUBIN,TOTAL 0.2 mg/dL (0.2-1.3); Calcium 9.6 mg/dL (8.4-10.2); Creatinine 1 0.99 mg/dL (0.66-1.25); EST GLOMERULAR FILTRATION RATE 91.1 ML/MIN; Potassium 4.8 mmol/L (3.5-5.1)
--- NOTE | 2024-06-13 05:30 | ERPHSYRPT ---
- History of Present Illness Time Seen by Provider: 06/13/24 05:05 Historian: patient Exam Limitations: no limitations Patient Subjective Stated Complaint: chest pain since yesterday afternoon Triage Nursing Assessment: pt ambulatory to bed by self, pt c/o chest pain since yesterday afternoon, pt states chest pain started yesterday when he was laying down and has been constant since then but has gotten increasingly worse tonight, pulses strong and regular, heart tones regular, pt hypertensive and prescribed bp medication but pt states he has never taken it. Physician History: 54-year-old male history of hypertension smoker presents to our ED for evaluation of chest pain. Patient's blood pressure observed to be elevated. Patient states he should be on a blood pressure medication but is noncompliant with his primary care doctor's recommendations. Patient reports that he has not gotten his cholesterol checked. Patient's chest pain started yesterday. Pain described as an ache that is primarily to the left chest. Patient reports the pain is progressively worsening. No associated nausea vomiting or diaphoresis. Symptoms are moderate in intensity. No specific worsening improving factors. Patient reports he is experiencing pain at rest. No trauma no fever. Patient voices no other complaints or concerns at this time. Portions of this note were created with voice recognition technology. There may be grammatical, spelling, punctuation or sound alike errors Timing/Duration: yesterday Activities at Onset: none Quality: aching Location: other (Left chest) Chest Pain Radiation: no radiation Severity of Pain-Max: moderate Severity of Pain-Current: moderate Modifying Factors: Improves With: nothing Associated Symptoms: denies symptoms Prior Chest Pain/Cardiac Workup: no prior chest pain Nitro Today/Relief: no nitro taken today Aspirin Treatment Today: no aspirin today Allergies/Adverse Reactions: No Known Drug Allergies Allergy (Verified 08/27/23 22:24) Home Medications: Levothyroxine Sodium 50 mcg PO DAILY 06/13/24 [History] Hx Tetanus, Diphtheria Vaccination/Date Given: Yes Hx Influenza Vaccination/Date Given: No Hx Pneumococcal Vaccination/Date Given: No Travel Risk - International Travel Have you traveled outside of the country in past 3 weeks: No - Emerging Infectious Disease Are you exhibiting symptoms associated with any current EIDs: No - Review of Systems Constitutional: No Symptoms, No Fever, No Chills Eyes: No Symptoms Ears, Nose, & Throat: No Symptoms Respiratory: No Symptoms, No Cough, No Dyspnea Cardiac: No Symptoms, No Chest Pain, No Edema, No Syncope Abdominal/Gastrointestinal: No Symptoms, No Abdominal Pain, No Nausea, No Vomiting, No Diarrhea Genitourinary Symptoms: No Symptoms, No Dysuria Musculoskeletal: No Symptoms, No Back Pain, No Neck Pain Skin: No Symptoms, No Rash Neurological: No Symptoms, No Dizziness, No Focal Weakness, No Sensory Changes Psychological: No Symptoms Endocrine: No Symptoms Hematologic/Lymphatic: No Symptoms Immunological/Allergic: No Symptoms All Other Systems: Reviewed and Negative - Past Medical History Pertinent Past Medical History: Yes Neurological History: Migraines ENT History: No Pertinent History Cardiac History: Hypertension Respiratory History: No Pertinent History Endocrine Medical History: No Pertinent History Musculoskeletal History: Arthritis, Fractures GI Medical History: No Pertinent History History: No Pertinent History Psycho-Social History: No Pertinent History Male Reproductive Disorders: No Pertinent History Other Medical History: PSH: L BARBIE, HEMRROID SURGERY - Past Surgical History Past Surgical History: Yes Neuro Surgical History: No Pertinent History Cardiac: No Pertinent History Respiratory: No Pertinent History Gastrointestinal: Hemorrhoidectomy Genitourinary: No Pertinent History Musculoskeletal: Joint Replacement Male Surgical History: No Pertinent History Other Surgical History: left hip - Social History Smoking Status: Current every day smoker How long have you smoked: 20yrs Exposure to second hand smoke: Yes Drug Use: none Patient Lives Alone: No - Social Determinants of Health Will the patient participate in the screening: Declined to provide - Nursing Vital Signs Nursing Vital Signs: Initial Vital Signs Temperature 97.6 F 06/13/24 05:01 Pulse Rate 62 06/13/24 05:01 Respiratory Rate 22 06/13/24 05:01 Blood Pressure 178/99 06/13/24 05:01 O2 Sat by Pulse Oximetry 98 06/13/24 05:01 Pain Scale Pain Intensity 10 - Physical Exam General Appearance: no apparent distress, alert Eye Exam: PERRL/EOMI, eyes nml inspection Ears, Nose, Throat Exam: normal ENT inspection, moist mucous membranes Neck Exam: normal inspection, non-tender, supple, full range of motion Respiratory Exam: normal breath sounds, lungs clear, airway intact, No respiratory distress Cardiovascular Exam: regular rate/rhythm, normal heart sounds, normal peripheral pulses Gastrointestinal/Abdomen Exam: soft, No tenderness, No mass Back Exam: normal inspection, No CVA tenderness, No vertebral tenderness Extremity Exam: normal inspection, normal range of motion Neurologic Exam: alert, oriented x 3, cooperative, normal mood/affect, sensation nml, No motor deficits Skin Exam: normal color, warm, dry Lymphatic Exam: No adenopathy SpO2 Interpretation: normal SpO2: 97 O2 Delivery: Room Air - Course Nursing assessment & vital signs reviewed: Yes EKG Interpreted by Me: RATE (50), Sinus Rhythm, NORMAL AXIS, NORMAL INTERVALS (Nonspecific T wave abnormalities) Ordered Tests: Active Orders 24 hr Category Date Time Status Hands And Dial Inspector STAT Care 06/13/24 05:06 Active EKG-ER Only STAT Care 06/13/24 05:06 Active IV Insertion STAT Care 06/13/24 05:06 Active Pulse Oximetry (ED) STAT Care 06/13/24 05:06 Active CHEST WITH CONTRAST [CT] Stat Exams 06/13/24 05:58 Ordered CBC W DIFF Stat Lab 06/13/24 05:14 Completed CMP Stat Lab 06/13/24 05:14 Completed D-DIMER QUANTITATIVE Stat Lab 06/13/24 05:14 Completed TROPONIN Q4H Lab 06/13/24 05:14 Completed TROPONIN Q4H Lab 06/13/24 09:15 Ordered TROPONIN Q4H Lab 06/13/24 13:15 Ordered Transfer Order Routine Transfer 06/13/24 Ordered Medication Summary Discontinued Medications Generic Name Dose Route Start Last Admin Trade Name Freq PRN Reason Stop Dose Admin Aspirin 324 mg 06/13/24 06:07 Aspirin 81 Mg Tab.Chew PO 06/13/24 06:08 STAT ONE Nitroglycerin 1 gm 06/13/24 06:08 Nitroglycerin 1 Gm Packet TOP 06/13/24 06:09 STAT ONE Lab/Rad Data: Laboratory Result Diagrams 06/13/24 05:14 06/13/24 05:14 Laboratory Results 06/13/24 06/13/24 06/13/24 Range/Units 05:14 05:14 05:14 WBC (4.23-9.07) x10^3/uL RBC (4.63-6.08) x10^6/uL Hgb (13.7-17.5) g/dL Hct (40.1-51.0) % MCV (79.0-92.2) fL MCH (25.7-32.2) pg MCHC (32.3-36.5) g/dL RDW (11.6-14.4) % Plt Count (163-337) x10^3/uL MPV (9.4-12.4) fL Gran % (34.0-67.9) % Immature Gran % (Auto) (0.001-0.429) % Nucleat RBC Rel Count (0.00-0.2) % Eos # (Auto) (0.04-0.54) x10^3/uL Immature Gran # (Auto) (0.001-0.031) x10^3u/L Absolute Lymphs (auto) (1.32-3.57) x10^3/uL Absolute Monos (auto) (0.30-0.82) x10^3/uL Absolute Nucleated RBC (0.00-0.012) x10^3u/L Lymphocytes % (21.8-53.1) % Monocytes % (5.3-12.2) % Eosinophils % (0.8-7.0) % Basophils % (0.2-1.2) % Absolute Granulocytes (1.78-5.38) x10^3/uL Basophils # (0.01-0.08) x10^3/uL D-Dimer 2.30 H* (0.0-0.50) mg/L Sodium 138 (135-145) mmol/L Potassium 4.8 (3.5-5.1) mmol/L Chloride 103 (98-107) mmol/L Carbon Dioxide 29 (22-30) mmol/L Anion Gap 10.0 (5-15) MEQ/L BUN 17 (9-20) mg/dL Creatinine 0.99 (0.66-1.25) mg/dL Estimated GFR 91.1 ML/MIN Glucose 111 H (74-106) mg/dL Calcium 9.6 (8.4-10.2) mg/dL Total Bilirubin 0.20 (0.2-1.3) mg/dL AST 22 (17-59) U/L ALT 15 (0-50) U/L Alkaline Phosphatase 77 (38-126) U/L Troponin I < 0.012 (0.000-0.033) ng/mL Serum Total Protein 7.0 (6.3-8.2) g/dL Albumin 3.9 (3.5-5.0) g/dL 06/13/24 Range/Units 05:14 WBC 8.2 (4.23-9.07) x10^3/uL RBC 4.51 L (4.63-6.08) x10^6/uL Hgb 13.7 (13.7-17.5) g/dL Hct 41.4 (40.1-51.0) % MCV 91.8 (79.0-92.2) fL MCH 30.4 (25.7-32.2) pg MCHC 33.1 (32.3-36.5) g/dL RDW 12.7 (11.6-14.4) % Plt Count 281 (163-337) x10^3/uL MPV 9.5 (9.4-12.4) fL Gran % 63.4 (34.0-67.9) % Immature Gran % (Auto) 0.9 H (0.001-0.429) % Nucleat RBC Rel Count 0.0 (0.00-0.2) % Eos # (Auto) 0.89 H (0.04-0.54) x10^3/uL Immature Gran # (Auto) 0.07 H (0.001-0.031) x10^3u/L Absolute Lymphs (auto) 1.21 L (1.32-3.57) x10^3/uL Absolute Monos (auto) 0.75 (0.30-0.82) x10^3/uL Absolute Nucleated RBC 0.00 (0.00-0.012) x10^3u/L Lymphocytes % 14.7 L (21.8-53.1) % Monocytes % 9.1 (5.3-12.2) % Eosinophils % 10.8 H (0.8-7.0) % Basophils % 1.1 (0.2-1.2) % Absolute Granulocytes 5.21 (1.78-5.38) x10^3/uL Basophils # 0.09 H (0.01-0.08) x10^3/uL D-Dimer (0.0-0.50) mg/L Sodium (135-145) mmol/L Potassium (3.5-5.1) mmol/L Chloride (98-107) mmol/L Carbon Dioxide (22-30) mmol/L Anion Gap (5-15) MEQ/L BUN (9-20) mg/dL Creatinine (0.66-1.25) mg/dL Estimated GFR ML/MIN Glucose (74-106) mg/dL Calcium (8.4-10.2) mg/dL Total Bilirubin (0.2-1.3) mg/dL AST (17-59) U/L ALT (0-50) U/L Alkaline Phosphatase (38-126) U/L Troponin I (0.000-0.033) ng/mL Serum Total Protein (6.3-8.2) g/dL Albumin (3.5-5.0) g/dL - Progress Progress: improved Air Movement: good Progress Note: Patient is a 54-year-old male presents to emergency department for evaluation of chest pain x 1 day. Patient has hypertension and is noncompliant with his recommended blood pressure medication. Patient states he does not follow-up regularly does not know his cholesterol. Patient is a smoker. Patient has considerable cardiovascular risk factors. EKG showed a sinus rhythm initial troponin negative. D-dimer positive. CTA chest ordered results pending. It is currently the change of shift. Patient admitted to Dr. Bergeron service. Plan of care discussed with patient. He agrees to admission at [address] [place] [address] for further evaluation and treatment. Portions of this note were created with voice recognition technology. There may be grammatical, spelling, punctuation or sound alike errors Complexity problem addressed is moderate acute complicated. No critical care time. Complex of data reviewed and analyzed is extensive. Test ordered test reviewed results analyzed and correlated clinically with history and physical exam. Risk of complication and or risk of morbidity/mortality patient management is high. Patient requires hospitalization for further evaluation and treatment. Vital stable. Time spent admit patient approximately 20 minutes. Plan of care established for shared decision making. No social determinants of health present impede follow-up. Patient accepted by Dr. Bergeron, hospitalist at 6:18 AM. Portions of this note were created with voice recognition technology. There may be grammatical, spelling, punctuation or sound alike errors 06/13/24 06:15 Patient endorsed endorsed to Dr. Murcia at 6:40 AM. He will follow-up on CTA chest Portions of this note were created with voice recognition technology. There may be grammatical, spelling, punctuation or sound alike errors Blood Culture(s) Obtained: No Antibiotics given: No Discussed with : Nohemi Will see patient in: hospital (observation) Counseled pt/family regarding: lab results, diagnosis, rad results - Departure Departure Disposition: Observation Clinical Impression: Chest pain, Acute coronary syndrome, Noncompliance with medication regimen Condition: Stable Critical Care Time: No Referrals: KIMBERLI MARTINEZ MD [Primary Care Provider] - Follow up/PCP as directed
[2024-06-13] MEDS ORDERED: BABY ASPIRIN 81 MG CHEW ONE (06:38)
[2024-06-13] MEDS ORDERED: NITRO-BID 2% UD PACKETS ONE (06:38)
[2024-06-13] MEDS: BABY ASPIRIN 81 MG CHEW PO ONE (06:40)
[2024-06-13] MEDS: NITRO-BID 2% UD PACKETS TOP ONE (06:41)
--- NOTE | 2024-06-13 06:59 | XRAY ---
CLINICAL HISTORY: pain, + dimer COMPARISON: None. TECHNIQUE: Contiguous 3.[address] images of the chest were acquired with administration of 80 cc isovue-370 intravenous contrast. Coronal and sagittal reconstructions were obtained. One of the following dose reduction techniques were utilized for this exam: Automated exposure control, adjustment of the mA and/or kV according to patient size, and use of iterative reconstruction FINDINGS: Lungs: Bilateral apical para-septal emphysematous changes. Bilateral lower lobar basal fibro-atelectatic bands. Lungs show no evidence of consolidation, collapse, or focal lesions. No ground-glass opacities or interstitial changes. No pleural effusion or pleural thickening. Mediastinum: No mediastinal mass or abnormal lymphadenopathy. Few sub-centimetric mediastinal lymph nodes, likely reactive. Hilar Structures: Normal size and configuration, no enlargement. Heart and Great Vessels: Mild cardiomegaly with left ventricular hypertrophy. No pericardial effusion. Normal caliber and course of the thoracic aorta and other great vessels. No significant atherosclerosis or aneurysm. Normal enhancement of the great vessels post-contrast. Pulmonary Arteries: No evidence of pulmonary embolism. Normal size and course of the pulmonary arteries. Esophagus: Normal course and caliber. No masses or dilatation. Bones: No fractures or lytic/sclerotic lesions. Normal bone density and alignment. No evidence of rib fractures. Chest Wall: No masses or soft tissue abnormalities. Upper Abdomen: Visualized portions of the liver, spleen, pancreas, adrenal glands, and kidneys are normal. No abnormalities noted in the visualized upper abdominal organs. Thyroid: Markedly enlarged both thyroid lobes with mild retrosternal extension. IMPRESSION: 1. No evidence of pulmonary embolism normal size and course of the pulmonary arteries. 2. Mild cardiomegaly with left ventricular hypertrophy. 3. Bilateral apical para-septal emphysematous changes. 4. Markedly enlarged both thyroid lobes with mild retrosternal extension, needs clinical correlation, laboratory workup, and further evaluation by ultrasound. 5. Bilateral lower lobar basal fibro-atelectatic bands, likely old inflammatory sequels. Electronically Signed by: Rodrigue Duarte MD. (06/13/2024 06:54:05 EDT)
[2024-06-13] MEDS ORDERED: TYLENOL 325 MG PO PRN (08:24)
--- NOTE | 2024-06-13 11:04 | PCM.HP ---
History of Present Illness - Chief Complaint Chief Complaint: CHEST PAIN, ACS Date: 06/13/24 History of Present Illness: is a 54 year old male with a pmhx of hypertension and migraines who presented to ED 06/13/24 with complaints of chest pain that started 06/12/24. The pain is described in the left chest, sharp (non-radiating) in characteristic, aggravated with deep breathing, and no alleviating factors. No associated nausea, vomiting, diaphoresis, shortness of breath, headaches, or dizziness. Denies fever,cough,abdominal pain, NIEVES, dizziness, N/V/D. No similar episodes. Patient is a 1 PPD smoker. Upon arrival, patient was hypertensive with BP elevated as high as 207/118. Lab findings with elevated DDimer - CTA negative for PE. Mild cardiomegaly with left ventricular hypertrophy. Markedly enlarged both thyroid lobes with mild retrosternal extension, needs clinical correlation, laboratory workup, and further evaluation by ultrasound. EKG NS with LVH. Troponin WNL x 2. Patient given ASA and Nitro in ED. Plan for admission for CP ACS r/o. Will complete trop series and repeat EKG in the morning. - Review of Systems Constitutional: No Symptoms Eyes: No Symptoms Ears, Nose, & Throat: No Symptoms Respiratory: No Symptoms Cardiac: Chest Pain Abdominal/Gastrointestinal: No Symptoms Genitourinary Symptoms: No Symptoms Musculoskeletal: No Symptoms Skin: No Symptoms Neurological: No Symptoms Psychological: No Symptoms Endocrine: No Symptoms Hematologic/Lymphatic: No Symptoms Immunological/Allergic: No Symptoms Medications & Allergies Home Medications: Home Medication List Levothyroxine Sodium 50 mcg PO DAILY 06/13/24 [History Confirmed 06/13/24] Allergies/Adverse Reactions: Allergies Allergy/AdvReac Type Severity Reaction Status Date / Time No Known Drug Allergies Allergy Verified 06/13/24 08:38 - Past Medical History Past Medical History: Yes Neurological History: Migraines ENT History: No Pertinent History Cardiac History: Hypertension Respiratory History: No Pertinent History Endocrine Medical History: Other Musculoskelatal History: Arthritis, Fractures GI Medical History: No Pertinent History History: No Pertinent History Pyscho-Social History: No Pertinent History Male Reproductive Disorders: No Pertinent History Comment: PSH: L BARBIE, THYROID ISSUES - Past Surgical History Past Surgical History: Yes Neuro Surgical History: No Pertinent History Cardiac History: No Pertinent History Respiratory Surgery: No Pertinent History GI Surgical History: Hemorrhoidectomy Genitourinary Surgical Hx: No Pertinent History Musculskeletal Surgical Hx: Joint Replacement Male Surgical History: No Pertinent History Other Surgical History: left hip - Social History Smoking Status: Current every day smoker How long have you smoked: 20 YEARS Exposure to second hand smoke: Yes Alcohol: Rarely Drug Use: none - Social Determinants of Health Will the patient participate in the screening: Yes Do you worry about a steady place to live?: No Do you have any problems with any of the following?: No known problems In the past 12 months,have you had to go without utilities?: No Have you or anyone in your house had to go without enough: No Transportation Issues: No Has anyone in your support network made you feel unsafe?: No Does the patient want assistance with any of the above?: No - Physical Exam Vital Signs: Vital Signs - 24 hr Temp Pulse Pulse Resp BP BP Pulse Ox 06/13/24 08:27 96.4 F 54 L 16 189/100 98 06/13/24 08:24 68 06/13/24 08:00 201/89 06/13/24 07:30 50 L 15 181/91 99 06/13/24 07:00 56 L 17 198/113 98 06/13/24 06:30 62 19 189/114 98 06/13/24 06:21 60 16 184/115 100 06/13/24 06:20 97 06/13/24 06:00 65 21 207/118 99 06/13/24 05:30 53 L 19 194/103 100 06/13/24 05:16 97 06/13/24 05:05 55 L 15 178/99 99 06/13/24 05:02 60 06/13/24 05:01 97.6 F 62 22 178/99 98 General Appearance: no apparent distress Neurologic Exam: alert, oriented x 3, cooperative Eye Exam: PERRL/EOMI Ears, Nose, Throat Exam: normal ENT inspection Neck Exam: normal inspection Respiratory Exam: normal breath sounds, lungs clear Cardiovascular Exam: regular rate/rhythm, normal heart sounds Gastrointestinal/Abdomen Exam: soft, normal bowel sounds Rectal Exam: deferred Back Exam: normal inspection Extremity Exam: normal inspection Skin Exam: normal color Results - Labs Lab/Micro Results: Lab Results-Last 24 Hours 06/13/24 06/13/24 06/13/24 Range/Units 05:14 05:14 05:14 WBC 8.2 (4.23-9.07) x10^3/uL RBC 4.51 L (4.63-6.08) x10^6/uL Hgb 13.7 (13.7-17.5) g/dL Hct 41.4 (40.1-51.0) % MCV 91.8 (79.0-92.2) fL MCH 30.4 (25.7-32.2) pg MCHC 33.1 (32.3-36.5) g/dL RDW 12.7 (11.6-14.4) % Plt Count 281 (163-337) x10^3/uL MPV 9.5 (9.4-12.4) fL Gran % 63.4 (34.0-67.9) % Immature Gran % (Auto) 0.9 H (0.001-0.429) % Nucleat RBC Rel Count 0.0 (0.00-0.2) % Eos # (Auto) 0.89 H (0.04-0.54) x10^3/uL Immature Gran # (Auto) 0.07 H (0.001-0.031) x10^3u/L Absolute Lymphs (auto) 1.21 L (1.32-3.57) x10^3/uL Absolute Monos (auto) 0.75 (0.30-0.82) x10^3/uL Absolute Nucleated RBC 0.00 (0.00-0.012) x10^3u/L Lymphocytes % 14.7 L (21.8-53.1) % Monocytes % 9.1 (5.3-12.2) % Eosinophils % 10.8 H (0.8-7.0) % Basophils % 1.1 (0.2-1.2) % Absolute Granulocytes 5.21 (1.78-5.38) x10^3/uL Basophils # 0.09 H (0.01-0.08) x10^3/uL D-Dimer 2.30 H* (0.0-0.50) mg/L Sodium 138 (135-145) mmol/L Potassium 4.8 (3.5-5.1) mmol/L Chloride 103 (98-107) mmol/L Carbon Dioxide 29 (22-30) mmol/L Anion Gap 10.0 (5-15) MEQ/L BUN 17 (9-20) mg/dL Creatinine 0.99 (0.66-1.25) mg/dL Estimated GFR 91.1 ML/MIN Glucose 111 H (74-106) mg/dL Calcium 9.6 (8.4-10.2) mg/dL Total Bilirubin 0.20 (0.2-1.3) mg/dL AST 22 (17-59) U/L ALT 15 (0-50) U/L Alkaline Phosphatase 77 (38-126) U/L Troponin I (0.000-0.033) ng/mL Serum Total Protein 7.0 (6.3-8.2) g/dL Albumin 3.9 (3.5-5.0) g/dL 06/13/24 06/13/24 Range/Units 05:14 08:38 WBC (4.23-9.07) x10^3/uL RBC (4.63-6.08) x10^6/uL Hgb (13.7-17.5) g/dL Hct (40.1-51.0) % MCV (79.0-92.2) fL MCH (25.7-32.2) pg MCHC (32.3-36.5) g/dL RDW (11.6-14.4) % Plt Count (163-337) x10^3/uL MPV (9.4-12.4) fL Gran % (34.0-67.9) % Immature Gran % (Auto) (0.001-0.429) % Nucleat RBC Rel Count (0.00-0.2) % Eos # (Auto) (0.04-0.54) x10^3/uL Immature Gran # (Auto) (0.001-0.031) x10^3u/L Absolute Lymphs (auto) (1.32-3.57) x10^3/uL Absolute Monos (auto) (0.30-0.82) x10^3/uL Absolute Nucleated RBC (0.00-0.012) x10^3u/L Lymphocytes % (21.8-53.1) % Monocytes % (5.3-12.2) % Eosinophils % (0.8-7.0) % Basophils % (0.2-1.2) % Absolute Granulocytes (1.78-5.38) x10^3/uL Basophils # (0.01-0.08) x10^3/uL D-Dimer (0.0-0.50) mg/L Sodium (135-145) mmol/L Potassium (3.5-5.1) mmol/L Chloride (98-107) mmol/L Carbon Dioxide (22-30) mmol/L Anion Gap (5-15) MEQ/L BUN (9-20) mg/dL Creatinine (0.66-1.25) mg/dL Estimated GFR ML/MIN Glucose (74-106) mg/dL Calcium (8.4-10.2) mg/dL Total Bilirubin (0.2-1.3) mg/dL AST (17-59) U/L ALT (0-50) U/L Alkaline Phosphatase (38-126) U/L Troponin I < 0.012 < 0.012 (0.000-0.033) ng/mL Serum Total Protein (6.3-8.2) g/dL Albumin (3.5-5.0) g/dL - Radiology Impressions Radiology Exams & Impressions: Radiology Procedures Category Date Time Status CHEST WITH CONTRAST [CT] Stat Exams 06/13/24 05:58 Completed - Other Procedures and Tests Respiratory Therapy 06/13/24 08:50 Smoking Cessation Education ONCE Assessment/Plan (1) Chest pain Current Visit: Yes Status: Acute Assessment & Plan: -EKG and trop unremarkable -Echo -Repeat EKG in the a.m. 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
[2024-06-13] MEDS ORDERED: Zofran 4 MG/2 ML VIAL IV PRN (11:13)
[2024-06-13] MEDS: Nicoderm CQ 21 MG TOP SCH (11:24)
[2024-06-13] MEDS: Zestril 20 MG PO ONE (11:24)
[2024-06-13] MEDS: MORPHINE SULFATE 2 MG INJ IV PRN (11:35)
[2024-06-13 12:23] LABS: Appearance Clear (Clear); Bacteria None Seen /HPF (None Seen); Bilirubin Negative (Negative); Blood Negative (Negative); Epithelial Cells None Seen /HPF (None Seen); Glucose, Urine Negative (Negative); Hyaline Casts NONE SEEN /LPF (0-2); Ketones Negative (Negative); Leukocyte Esterase Negative (Negative); Nitrite Negative (Negative); Ph 6.5 (4.6-8.0); Protein,Urine Dip Negative (Negative); RBC 0-2 /HPF (0-5); Specific Gravity >=1.030 (1.005-1.030); Urobilinogen 0.2 mg/dL (0.2); WBC 0-2 /HPF (0-5)
[2024-06-13 12:24] LABS: ADD URINE CULTURE? NO (NO)
[2024-06-13 12:37] LABS: Amphetamine,Urine NEGATIVE (NEGATIVE); Barbiturate,Urine NEGATIVE (NEGATIVE); Benzodiazepine,Urine NEGATIVE (NEGATIVE); Cocaine,Urine NEGATIVE (NEGATIVE); Methadone,Urine NEGATIVE (NEGATIVE); Opiate,Urine NEGATIVE (NEGATIVE); PCP,Urine NEGATIVE (NEGATIVE); THC,Urine NEGATIVE (NEGATIVE)
[2024-06-13] MEDS: SYNTHROID 50 MCG PO SCH (15:26)
[2024-06-13] MEDS: PROTONIX 40 MG IV IV SCH (15:26)
--- NOTE | 2024-06-13 15:29 | PCM.CONS ---
History of Present Illness - Date of Consult Date of Encounter: 06/13/24 Consulting Malariologist: CARL KLEIN MD Requesting Provider: Attending Provider: JIMY ALICEA MD Primary Care Provider: PCP: KIMBERLI MARTINEZ - Consult Narrative Reason for Consult: chest pain, unstable angina HPI: 54 year old male with a pmhx of hypertension and migraines who presented to ED with complaints of chest pain that started 06/12/24. He describes it as left sided, sharp (non-radiating) in characteristic, no aggravating or alleviating factors. No associated nausea, vomiting, diaphoresis, shortness of breath, headaches, or dizziness. Denies fever,cough,abdominal pain, NIEVES, dizziness, N/V/D. No similar episodes. Patient is a 1 PPD smoker. Pain is constant since yesterday, even after BP better. Upon arrival, patient was hypertensive with BP elevated as high as 207/118. Lab findings with elevated DDimer - CTA negative for PE. Mild cardiomegaly with left ventricular hypertrophy. EKG NS with LVH. Troponin WNL x 2. Patient given ASA and Nitro in ED. Plan for admission for CP ACS r/o. denies orthopnea, PND, LE edema, syncope. cc:: The requesting physician will be sent a copy of the consult. Review of Systems - Review of Systems All systems: as per HPI - Past Medical History Past Medical History: Yes Neurological History: Migraines ENT History: No Pertinent History Cardiac History: Hypertension Respiratory History: No Pertinent History Endocrine Medical History: Other Musculoskelatal History: Arthritis, Fractures GI Medical History: No Pertinent History History: No Pertinent History Pyscho-Social History: No Pertinent History Male Reproductive Disorders: No Pertinent History Comment: PSH: L BARBIE, THYROID ISSUES - Past Surgical History Past Surgical History: Yes Neuro Surgical History: No Pertinent History Cardiac History: No Pertinent History Respiratory Surgery: No Pertinent History GI Surgical History: Hemorrhoidectomy Genitourinary Surgical Hx: No Pertinent History Musculskeletal Surgical Hx: Joint Replacement Male Surgical History: No Pertinent History Other Surgical History: left hip - Social History Smoking Status: Current every day smoker How long have you smoked: 20 YEARS Exposure to second hand smoke: Yes Alcohol: Rarely Drug Use: none - Social Determinants of Health Will the patient participate in the screening: Yes Do you worry about a steady place to live?: No Do you have any problems with any of the following?: No known problems In the past 12 months,have you had to go without utilities?: No Have you or anyone in your house had to go without enough: No Transportation Issues: No Has anyone in your support network made you feel unsafe?: No Does the patient want assistance with any of the above?: No Medications & Allergies Home Medications: Home Medication List Levothyroxine Sodium 50 mcg PO DAILY 06/13/24 [History Confirmed 06/13/24] Allergies/Adverse Reactions: Allergies Allergy/AdvReac Type Severity Reaction Status Date / Time No Known Drug Allergies Allergy Verified 06/13/24 08:38 Exam - Vitals Vital Signs: Vital Signs - 24 hr Temp Pulse Pulse Resp BP BP Pulse Ox 06/13/24 13:58 97.8 F 58 L 16 144/86 97 06/13/24 08:27 96.4 F 54 L 16 189/100 98 06/13/24 08:24 68 06/13/24 08:00 201/89 06/13/24 07:30 50 L 15 181/91 99 06/13/24 07:00 56 L 17 198/113 98 06/13/24 06:30 62 19 189/114 98 06/13/24 06:21 60 16 184/115 100 06/13/24 06:20 97 06/13/24 06:00 65 21 207/118 99 06/13/24 05:30 53 L 19 194/103 100 06/13/24 05:16 97 06/13/24 05:05 55 L 15 178/99 99 06/13/24 05:02 60 06/13/24 05:01 97.6 F 62 22 178/99 98 General:: alert and oriented x 4, mild distress HEENT: PERRLA, EOMI Cardiovascular Exam: regular rate/rhythm, normal heart sounds Respiratory Exam: normal breath sounds, lungs clear SpO2: 97 Gastrointestinal/Abdomen Exam: soft, normal bowel sounds Extremity Exam: normal inspection, normal range of motion Neurologic: bi consultant II-XII grossly intact Results Vital Signs: Vital Signs - 24 hr Temp Pulse Pulse Resp BP BP Pulse Ox 06/13/24 13:58 97.8 F 58 L 16 144/86 97 06/13/24 08:27 96.4 F 54 L 16 189/100 98 06/13/24 08:24 68 06/13/24 08:00 201/89 06/13/24 07:30 50 L 15 181/91 99 06/13/24 07:00 56 L 17 198/113 98 06/13/24 06:30 62 19 189/114 98 06/13/24 06:21 60 16 184/115 100 06/13/24 06:20 97 06/13/24 06:00 65 21 207/118 99 06/13/24 05:30 53 L 19 194/103 100 06/13/24 05:16 97 06/13/24 05:05 55 L 15 178/99 99 06/13/24 05:02 60 06/13/24 05:01 97.6 F 62 22 178/99 98 Pain Assessment - Last Documented Pain Intensity 10 Pain Scale Used 0-10 Pain Scale Intake and Output: Intake & Output 06/11/24 06/12/24 06/13/24 06/14/24 11:59 11:59 11:59 11:59 Intake Total 240 0 Output Total 300 Balance -60 0 Weight 68.7 kg LAB: I have reviewed the Labs in [facility]. Radiology Exams: Radiology Procedures Category Date Time Status CHEST WITH CONTRAST [CT] Stat Exams 06/13/24 05:58 Completed ECHO W/2D AND DOPPLER [US] Routine Exams 06/13/24 11:10 Taken - ECHO Echo: image reviewed by me (EF 40%) Assessment & Plan (1) Acute coronary syndrome Current Visit: Yes Status: Acute Assessment & Plan: see below under chest pain Code(s): I24.9 - ACUTE ISCHEMIC HEART DISEASE, UNSPECIFIED (2) Chest pain Current Visit: Yes Status: Acute Qualifiers: Chest pain type: chest pain due to myocardial ischemia Ischemic chest pain type: unstable angina pectoris Qualified Code(s): I20.0 - Unstable angina Assessment & Plan: - pt with unstable angina. Echo shows EF 40% with global hypokinesis but more pronounced in the septal wall - if not already given, give aspirin 325 mg once, then 81 mg daily - start heparin drip ACS protocol - lipitor 40 mg nightly - c/w BP control - Recommend transferring to tertiary care [place] for [facility] for unstable angina and reduced LVEF Code(s): R07.9 - CHEST PAIN, UNSPECIFIED (3) Hypertension Current Visit: No Status: Acute Assessment & Plan: as above Code(s): I10 - ESSENTIAL (PRIMARY) HYPERTENSION - Encounter Encounter: "The entirety of this encounter was performed via Telemedicine using audio and visual "
--- NOTE | 2024-06-13 15:41 | PCM.DS ---
Discharge Summary Date of Admission: 06/13/24 08:20 Date of Discharge: 06/13/24 Admitting Physician: JIMY ALICEA MD Consults: Consults on Case 06/13/24 11:10 Cardiology Consult [Notify [employer] of Admit] ROUTINE Primary Care Provider: KIMBERLI MARTINEZ Allergies Allergies No Known Drug Allergies Allergy (Verified 06/13/24 08:38) Hospital Summary - Hospital Course Hospital Course: 54 year old male with a pmhx of hypertension and migraines who presented to ED 06/13/24 with complaints of chest pain that started 06/12/24. He describes it as left sided, sharp (non-radiating) in characteristic, no aggravating or alleviating factors. No associated nausea, vomiting, diaphoresis, shortness of breath, headaches, or dizziness. Denies fever,cough,abdominal pain, NIEVES, dizziness, N/V/D. No similar episodes. Patient is a 1 PPD smoker. Pain is constant since yesterday, even after BP better. Upon arrival, patient was hypertensive with BP elevated as high as 207/118. Lab findings with elevated DDimer - CTA negative for PE. Mild cardiomegaly with left ventricular hypertrophy. EKG NS with LVH. Troponin WNL x 2. Patient given ASA and Nitro in ED. Plan for admission for CP ACS r/o. Denies orthopnea, PND, LE edema, syncope. Cardiology consulted and recommending transfer for unstable angina and reduced LVEF for C. Will start heparin drip, ASA, and lipitor. Echo shows EF 40% with global hypokinesis but more pronounced in the septal wall. Discharge Note New Diagnosis: Unstable angina Latest Assessment & Plan 2) Chest pain Current Visit: Yes Status: Acute Qualifiers: Chest pain type: chest pain due to myocardial ischemia Ischemic chest pain type: unstable angina pectoris Qualified Code(s): I20.0 - Unstable angina Assessment & Plan: - pt with unstable angina. Echo shows EF 40% with global hypokinesis but more pronounced in the septal wall - if not already given, give aspirin 325 mg once, then 81 mg daily - start heparin drip ACS protocol - lipitor 40 mg nightly - c/w BP control - Recommend transferring to tertiary care center for LHC for unstable angina and reduced LVEF Code(s): R07.9 - CHEST PAIN, UNSPECIFIED (1) Chest pain Current Visit: Yes Status: Acute Assessment & Plan: -EKG and trop unremarkable -Echo -Repeat EKG in the a.m. 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 - Vitals & Intake/Output Vital Signs: Vital Signs Temperature 97.8 F 06/13/24 13:58 Pulse Rate 58 L 06/13/24 13:58 Respiratory Rate 16 06/13/24 13:58 Blood Pressure 144/86 06/13/24 13:58 O2 Sat by Pulse Oximetry 97 06/13/24 15:31 Intake & Output: Intake & Output 06/11/24 06/12/24 06/13/24 06/14/24 11:59 11:59 11:59 11:59 Intake Total 240 0 Output Total 300 Balance -60 0 Weight 68.7 kg - Lab Result Diagrams: 06/13/24 05:14 06/13/24 05:14 Lab Results-Last 24 Hrs: Lab Results-Last 24 Hours 06/13/24 06/13/24 06/13/24 Range/Units 05:14 05:14 05:14 WBC 8.2 (4.23-9.07) x10^3/uL RBC 4.51 L (4.63-6.08) x10^6/uL Hgb 13.7 (13.7-17.5) g/dL Hct 41.4 (40.1-51.0) % MCV 91.8 (79.0-92.2) fL MCH 30.4 (25.7-32.2) pg MCHC 33.1 (32.3-36.5) g/dL RDW 12.7 (11.6-14.4) % Plt Count 281 (163-337) x10^3/uL MPV 9.5 (9.4-12.4) fL Gran % 63.4 (34.0-67.9) % Immature Gran % (Auto) 0.9 H (0.001-0.429) % Nucleat RBC Rel Count 0.0 (0.00-0.2) % Eos # (Auto) 0.89 H (0.04-0.54) x10^3/uL Immature Gran # (Auto) 0.07 H (0.001-0.031) x10^3u/L Absolute Lymphs (auto) 1.21 L (1.32-3.57) x10^3/uL Absolute Monos (auto) 0.75 (0.30-0.82) x10^3/uL Absolute Nucleated RBC 0.00 (0.00-0.012) x10^3u/L Lymphocytes % 14.7 L (21.8-53.1) % Monocytes % 9.1 (5.3-12.2) % Eosinophils % 10.8 H (0.8-7.0) % Basophils % 1.1 (0.2-1.2) % Absolute Granulocytes 5.21 (1.78-5.38) x10^3/uL Basophils # 0.09 H (0.01-0.08) x10^3/uL D-Dimer 2.30 H* (0.0-0.50) mg/L Sodium 138 (135-145) mmol/L Potassium 4.8 (3.5-5.1) mmol/L Chloride 103 (98-107) mmol/L Carbon Dioxide 29 (22-30) mmol/L Anion Gap 10.0 (5-15) MEQ/L BUN 17 (9-20) mg/dL Creatinine 0.99 (0.66-1.25) mg/dL Estimated GFR 91.1 ML/MIN Glucose 111 H (74-106) mg/dL Calcium 9.6 (8.4-10.2) mg/dL Total Bilirubin 0.20 (0.2-1.3) mg/dL AST 22 (17-59) U/L ALT 15 (0-50) U/L Alkaline Phosphatase 77 (38-126) U/L Troponin I (0.000-0.033) ng/mL Serum Total Protein 7.0 (6.3-8.2) g/dL Albumin 3.9 (3.5-5.0) g/dL Urine Color (Yellow) Urine Appearance (Clear) Urine pH (4.6-8.0) Ur Specific Wrens (1.005-1.030) Urine Protein (Negative) Urine Glucose (UA) (Negative) mg/dL Urine Ketones (Negative) Urine Blood (Negative) Urine Nitrite (Negative) Urine Bilirubin (Negative) Urine Urobilinogen (0.2) mg/dL Ur Leukocyte Esterase (Negative) U Hyaline Cast (Auto) (0-2) /LPF Urine Microscopic RBC (0-5) /HPF Urine Microscopic WBC (0-5) /HPF Ur Epithelial Cells (None Seen) /HPF Urine Bacteria (None Seen) /HPF Urine Culture Reflexed (NO) Urine Opiates Level (NEGATIVE) Ur Methadone (NEGATIVE) Urine Barbiturates (NEGATIVE) Ur Phencyclidine (PCP) (NEGATIVE) Urine Amphetamine (NEGATIVE) U Benzodiazepine Level (NEGATIVE) Urine Cocaine (NEGATIVE) Urine Marijuana (THC) (NEGATIVE) 06/13/24 06/13/24 06/13/24 Range/Units 05:14 08:38 12:11 WBC (4.23-9.07) x10^3/uL RBC (4.63-6.08) x10^6/uL Hgb (13.7-17.5) g/dL Hct (40.1-51.0) % MCV (79.0-92.2) fL MCH (25.7-32.2) pg MCHC (32.3-36.5) g/dL RDW (11.6-14.4) % Plt Count (163-337) x10^3/uL MPV (9.4-12.4) fL Gran % (34.0-67.9) % Immature Gran % (Auto) (0.001-0.429) % Nucleat RBC Rel Count (0.00-0.2) % Eos # (Auto) (0.04-0.54) x10^3/uL Immature Gran # (Auto) (0.001-0.031) x10^3u/L Absolute Lymphs (auto) (1.32-3.57) x10^3/uL Absolute Monos (auto) (0.30-0.82) x10^3/uL Absolute Nucleated RBC (0.00-0.012) x10^3u/L Lymphocytes % (21.8-53.1) % Monocytes % (5.3-12.2) % Eosinophils % (0.8-7.0) % Basophils % (0.2-1.2) % Absolute Granulocytes (1.78-5.38) x10^3/uL Basophils # (0.01-0.08) x10^3/uL D-Dimer (0.0-0.50) mg/L Sodium (135-145) mmol/L Potassium (3.5-5.1) mmol/L Chloride (98-107) mmol/L Carbon Dioxide (22-30) mmol/L Anion Gap (5-15) MEQ/L BUN (9-20) mg/dL Creatinine (0.66-1.25) mg/dL Estimated GFR ML/MIN Glucose (74-106) mg/dL Calcium (8.4-10.2) mg/dL Total Bilirubin (0.2-1.3) mg/dL AST (17-59) U/L ALT (0-50) U/L Alkaline Phosphatase (38-126) U/L Troponin I < 0.012 < 0.012 (0.000-0.033) ng/mL Serum Total Protein (6.3-8.2) g/dL Albumin (3.5-5.0) g/dL Urine Color Yellow (Yellow) Urine Appearance Clear (Clear) Urine pH 6.5 (4.6-8.0) Ur Specific Wrens >=1.030 A (1.005-1.030) Urine Protein Negative (Negative) Urine Glucose (UA) Negative (Negative) mg/dL Urine Ketones Negative (Negative) Urine Blood Negative (Negative) Urine Nitrite Negative (Negative) Urine Bilirubin Negative (Negative) Urine Urobilinogen 0.2 (0.2) mg/dL Ur Leukocyte Esterase Negative (Negative) U Hyaline Cast (Auto) NONE SEEN (0-2) /LPF Urine Microscopic RBC 0-2 (0-5) /HPF Urine Microscopic WBC 0-2 (0-5) /HPF Ur Epithelial Cells None Seen (None Seen) /HPF Urine Bacteria None Seen (None Seen) /HPF Urine Culture Reflexed NO (NO) Urine Opiates Level (NEGATIVE) Ur Methadone (NEGATIVE) Urine Barbiturates (NEGATIVE) Ur Phencyclidine (PCP) (NEGATIVE) Urine Amphetamine (NEGATIVE) U Benzodiazepine Level (NEGATIVE) Urine Cocaine (NEGATIVE) Urine Marijuana (THC) (NEGATIVE) 06/13/24 06/13/24 Range/Units 12:11 12:35 WBC (4.23-9.07) x10^3/uL RBC (4.63-6.08) x10^6/uL Hgb (13.7-17.5) g/dL Hct (40.1-51.0) % MCV (79.0-92.2) fL MCH (25.7-32.2) pg MCHC (32.3-36.5) g/dL RDW (11.6-14.4) % Plt Count (163-337) x10^3/uL MPV (9.4-12.4) fL Gran % (34.0-67.9) % Immature Gran % (Auto) (0.001-0.429) % Nucleat RBC Rel Count (0.00-0.2) % Eos # (Auto) (0.04-0.54) x10^3/uL Immature Gran # (Auto) (0.001-0.031) x10^3u/L Absolute Lymphs (auto) (1.32-3.57) x10^3/uL Absolute Monos (auto) (0.30-0.82) x10^3/uL Absolute Nucleated RBC (0.00-0.012) x10^3u/L Lymphocytes % (21.8-53.1) % Monocytes % (5.3-12.2) % Eosinophils % (0.8-7.0) % Basophils % (0.2-1.2) % Absolute Granulocytes (1.78-5.38) x10^3/uL Basophils # (0.01-0.08) x10^3/uL D-Dimer (0.0-0.50) mg/L Sodium (135-145) mmol/L Potassium (3.5-5.1) mmol/L Chloride (98-107) mmol/L Carbon Dioxide (22-30) mmol/L Anion Gap (5-15) MEQ/L BUN (9-20) mg/dL Creatinine (0.66-1.25) mg/dL Estimated GFR ML/MIN Glucose (74-106) mg/dL Calcium (8.4-10.2) mg/dL Total Bilirubin (0.2-1.3) mg/dL AST (17-59) U/L ALT (0-50) U/L Alkaline Phosphatase (38-126) U/L Troponin I < 0.012 (0.000-0.033) ng/mL Serum Total Protein (6.3-8.2) g/dL Albumin (3.5-5.0) g/dL Urine Color (Yellow) Urine Appearance (Clear) Urine pH (4.6-8.0) Ur Specific Wrens (1.005-1.030) Urine Protein (Negative) Urine Glucose (UA) (Negative) mg/dL Urine Ketones (Negative) Urine Blood (Negative) Urine Nitrite (Negative) Urine Bilirubin (Negative) Urine Urobilinogen (0.2) mg/dL Ur Leukocyte Esterase (Negative) U Hyaline Cast (Auto) (0-2) /LPF Urine Microscopic RBC (0-5) /HPF Urine Microscopic WBC (0-5) /HPF Ur Epithelial Cells (None Seen) /HPF Urine Bacteria (None Seen) /HPF Urine Culture Reflexed (NO) Urine Opiates Level NEGATIVE (NEGATIVE) Ur Methadone NEGATIVE (NEGATIVE) Urine Barbiturates NEGATIVE (NEGATIVE) Ur Phencyclidine (PCP) NEGATIVE (NEGATIVE) Urine Amphetamine NEGATIVE (NEGATIVE) U Benzodiazepine Level NEGATIVE (NEGATIVE) Urine Cocaine NEGATIVE (NEGATIVE) Urine Marijuana (THC) NEGATIVE (NEGATIVE) - Radiology Exams Ordered Rad Exams-Entire Visit: Radiology Procedures Category Date Time Status CHEST WITH CONTRAST [CT] Stat Exams 06/13/24 05:58 Completed ECHO W/2D AND DOPPLER [US] Routine Exams 06/13/24 11:10 Taken - Procedures and Test Procedures and Tests throughout Hospitalization: Therapy Orders & Screens 06/13/24 08:50 Smoking Cessation Education ONCE Comment: Diagnosis: CHEST PAIN, ACS Smoking Status: Current every day smoker How long have you smoked: 20 YEARS Have you smoked in the past 12 months: Yes Approximately how many cigarettes per day: 1 PACK Do you dip or chew tobacco: Yes 06/13/24 11:13 EKG REPEAT IN AM Comment: Diagnosis: CHEST PAIN, ACS Discharge Exam General Appearance: no apparent distress Neurologic Exam: alert, oriented x 3, cooperative Eye Exam: PERRL Ears, Nose, Throat Exam: normal ENT inspection Neck Exam: normal inspection Respiratory Exam: normal breath sounds, lungs clear Cardiovascular Exam: regular rate/rhythm, normal heart sounds Gastrointestinal/Abdomen Exam: soft, normal bowel sounds Male Genitalia Exam: deferred Rectal Exam: deferred Back Exam: normal inspection Extremity Exam: normal inspection Skin Exam: normal color Final Diagnosis/Problem List - Final Discharge Diagnosis/Problem (1) Unstable angina Current Visit: Yes Status: Acute (2) Chest pain Current Visit: Yes Status: Acute Code(s): R07.9 - CHEST PAIN, UNSPECIFIED (3) D-dimer, elevated Current Visit: Yes Status: Acute Code(s): R79.89 - OTHER SPECIFIED ABNORMAL FINDINGS OF BLOOD CHEMISTRY (4) Hypertension Current Visit: No Status: Acute Code(s): I10 - ESSENTIAL (PRIMARY) HYPERTENSION - Discharge Disposition: DC TO OTHER HOSP Condition: Stable Prescriptions: New Heparin 5000 Units/0.5 ml [Heparin 5000 Units/0.5 ml (High Risk Med)] 2,000 unit IV PRN PRN PRN Reason: PTT < 35 Nicotine 21 mg [Nicoderm CQ 21 MG] 21 mg TOP Q24H10 patch Pantoprazole 40 mg [Protonix 40 mg IV] 40 mg IV Q24H10 Acetaminophen 325 mg [Tylenol 325 mg] 650 mg PO Q6H PRN PRN tablet PRN Reason: Pain And/Or Fever Lisinopril 20 mg [Zestril 20 MG] 20 mg PO DAILY tablet Simvastatin 20Mg [Zocor 20Mg] 40 mg PO HS tablet Ondansetron HCl 4 mg/2 ml [Zofran 4 MG/2 ML VIAL] 4 mg IV Q6H PRN PRN PRN Reason: Nausea/Vomiting Continue Levothyroxine Sodium 50 mcg PO DAILY Follow up with: KIMBERLI MARTINEZ MD [Primary Care Provider] -
[2024-06-13] MEDS ORDERED: HEPARIN 5000 UNITS/0.5 ML (HIGH RISK MED) IV PRN (15:44)
[2024-06-13 15:59] LABS: Hematocrit 40.2 % (40.1-51.0); Hemoglobin 13.2 g/dL (13.7-17.5); Mean Cell Volume 91.6 fL (79.0-92.2); Mean Corpuscular Hemoglobin 30.1 pg (25.7-32.2); Mean Corpuscular Hgb Concent. 32.8 g/dL (32.3-36.5); Mean Platelet Volume 9.6 fL (9.4-12.4); Platelet Count 267 x10^3/uL (163-337); Red Blood Count 4.39 x10^6/uL (4.63-6.08); White Blood Count 6.9 x10^3/uL (4.23-9.07)
[2024-06-13] MEDS: HEPARIN 5000 UNITS/0.5 ML (HIGH RISK MED) IV STA (16:03)
[2024-06-13] MEDS: Heparin 25,000 units/D5W: USE ORDER SET PROTO 25,000 UNITS/250 ML BAG IV SCH (16:03)
[2024-06-13 16:19] LABS: INR 0.99 (0.8-3.0); PROTIME 10.8 SECONDS (9.4-12.5); PTT 31.2 SECONDS (25.1-36.5)
[2024-06-13] MEDS: ZOCOR 20MG PO SCH (22:31)
[2024-06-14] MEDS: APRESOLINE 20 MG/ML INJ IV PRN (01:33)
[2024-06-14] MEDS ORDERED: solu-MEDROL ONE (03:17)
[2024-06-14] MEDS ORDERED: Sterile H2O 10 ml IJ ONE (03:19)
[2024-06-14] MEDS: BENADRYL 50 MG/ML IV ONE (03:21)
[2024-06-14] MEDS: Pepcid 20 MG VIAL IV ONE (03:21)
[2024-06-14] MEDS: solu-MEDROL 125 MG, Sterile H2O 10 ml 2 ML IV ONE (03:21)
--- NOTE | 2024-06-14 04:13 | PCM.CONS ---
History of Present Illness - Reason for Consult Chief Complaint: CHEST PAIN, ACS Date of Consultation Date: 06/14/24 Reason for Consult: Sudden onset of SOB/Throat tightness Requesting Provider: JIMY ALICEA MD Consulting Provider: REN BAILON MD History of Present Illness: I have been requested to see this patient emergently for new onset of diaphoresis and shortness of breath with increased neck swelling 59 years old admitted with chest pain found out low ejection fraction plan to get transferred for left heart cath in the morning, currently on IV heparin, D- dimer was running by PT details remain negative for pulmonary embolism although it showed markedly enlarged thyroid gland with bilateral lobes extending down retrosternally. Upon my encounter I saw patient with bilateral swelling in the neck, he was sitting in the bed looking a bit restless and in distress, he told me that he is feeling difficulty in breathing and tightness in the neck it started all of a sudden while he went to bathroom he felt dizzy and diuretic. Vital signs currently stable. He is able to continue saturation. Plan is to get an urgent CT neck with contrast to rule out hematoma will stop IV heparin, low threshold to be intubated to protect airways. Discussed with staff in detail - Review of Systems All Other Systems: Reviewed and Negative (except mentioned in [facility]) Medications & Allergies Home Medications: Home Medication List Acetaminophen 325 mg [Tylenol 325 mg] 650 mg PO Q6H PRN PRN tablet [Rx] Heparin 5000 Units/0.5 ml [Heparin 5000 Units/0.5 ml (High Risk Med)] 2,000 unit IV PRN PRN 06/13/24 [Rx] Levothyroxine Sodium 50 mcg PO DAILY 06/13/24 [History Confirmed 06/13/24] Lisinopril 20 mg [Zestril 20 MG] 20 mg PO DAILY tablet 06/13/24 [Rx] Nicotine 21 mg [Nicoderm CQ 21 MG] 21 mg TOP Q24H10 patch 06/13/24 [Rx] Ondansetron HCl 4 mg/2 ml [Zofran 4 MG/2 ML VIAL] 4 mg IV Q6H PRN PRN 06/13/24 [Rx] Pantoprazole 40 mg [Protonix 40 mg IV] 40 mg IV Q24H10 06/13/24 [Rx] Simvastatin 20Mg [Zocor 20Mg] 40 mg PO HS tablet 06/13/24 [Rx] Allergies/Adverse Reactions: Allergies Allergy/AdvReac Type Severity Reaction Status Date / Time No Known Drug Allergies Allergy Verified 06/13/24 08:38 - Past Medical History Past Medical History: Yes Neurological History: Migraines ENT History: No Pertinent History Cardiac History: Hypertension Respiratory History: No Pertinent History Endocrine Medical History: Other Musculoskelatal History: Arthritis, Fractures GI Medical History: No Pertinent History History: No Pertinent History Pyscho-Social History: No Pertinent History Male Reproductive Disorders: No Pertinent History Comment: PSH: L BARBIE, THYROID ISSUES - Past Surgical History Past Surgical History: Yes Neuro Surgical History: No Pertinent History Cardiac History: No Pertinent History Respiratory Surgery: No Pertinent History GI Surgical History: Hemorrhoidectomy Genitourinary Surgical Hx: No Pertinent History Musculskeletal Surgical Hx: Joint Replacement Male Surgical History: No Pertinent History Other Surgical History: left hip Significant Family History: no pertinent family hx - Social History Smoking Status: Current every day smoker How long have you smoked: 20 YEARS Exposure to second hand smoke: Yes Alcohol: Rarely Drug Use: none - Social Determinants of Health Will the patient participate in the screening: Yes Do you worry about a steady place to live?: No Do you have any problems with any of the following?: No known problems In the past 12 months,have you had to go without utilities?: No Have you or anyone in your house had to go without enough: No Transportation Issues: No Has anyone in your support network made you feel unsafe?: No Does the patient want assistance with any of the above?: No - Physical Exam Vital Signs: Vital Signs - 24 hr Temp Pulse Pulse Resp BP BP Pulse Ox 06/14/24 02:01 75 17 162/85 98 06/14/24 01:30 57 L 15 210/121 06/14/24 01:00 57 L 16 183/103 06/14/24 00:01 55 L 06/14/24 00:00 52 L 15 155/99 98 06/13/24 23:00 51 L 16 164/92 97 06/13/24 22:00 52 L 13 164/99 95 06/13/24 21:30 56 L 15 172/94 06/13/24 21:00 56 L 15 171/89 06/13/24 20:30 52 L 14 166/96 06/13/24 20:00 53 L 16 175/100 06/13/24 19:26 52 L 06/13/24 19:22 98.6 F 57 L 18 161/93 98 06/13/24 19:01 52 L 22 181/88 99 06/13/24 18:00 49 L 15 144/80 95 06/13/24 17:01 51 L 14 159/82 99 06/13/24 16:00 97.7 F 58 L 15 134/84 97 06/13/24 15:49 54 L 17 132/82 97 06/13/24 15:31 97 06/13/24 13:58 97.8 F 58 L 16 144/86 97 06/13/24 08:27 96.4 F 54 L 16 189/100 98 06/13/24 08:24 68 06/13/24 08:00 201/89 06/13/24 07:30 50 L 15 181/91 99 06/13/24 07:00 56 L 17 198/113 98 06/13/24 06:30 62 19 189/114 98 06/13/24 06:21 60 16 184/115 100 06/13/24 06:20 97 06/13/24 06:00 65 21 207/118 99 06/13/24 05:30 53 L 19 194/103 100 06/13/24 05:16 97 06/13/24 05:05 55 L 15 178/99 99 06/13/24 05:02 60 06/13/24 05:01 97.6 F 62 22 178/99 98 Additional Findings: 06/14/24 04:12 HEENT Middle aged, average built in distress NECK Supple,thyromegaly, Bilateral Neck swellings noted CVS S1+S2 + 0, no murmers RESP Bilateral equal air entry without Crepts/Wheezes heard GIT Soft non tender,non distended Skin, No rah, no Bruises LEGS No Edema PSYCH Normal,mood, judgement and insight NEURO AOX3, no focal deficit Results - Labs Lab/Micro Results: Lab Results-Last 24 Hours 06/13/24 06/13/24 06/13/24 Range/Units 05:14 05:14 05:14 WBC 8.2 (4.23-9.07) x10^3/uL RBC 4.51 L (4.63-6.08) x10^6/uL Hgb 13.7 (13.7-17.5) g/dL Hct 41.4 (40.1-51.0) % MCV 91.8 (79.0-92.2) fL MCH 30.4 (25.7-32.2) pg MCHC 33.1 (32.3-36.5) g/dL RDW 12.7 (11.6-14.4) % Plt Count 281 (163-337) x10^3/uL MPV 9.5 (9.4-12.4) fL Gran % 63.4 (34.0-67.9) % Immature Gran % (Auto) 0.9 H (0.001-0.429) % Nucleat RBC Rel Count 0.0 (0.00-0.2) % Eos # (Auto) 0.89 H (0.04-0.54) x10^3/uL Immature Gran # (Auto) 0.07 H (0.001-0.031) x10^3u/L Absolute Lymphs (auto) 1.21 L (1.32-3.57) x10^3/uL Absolute Monos (auto) 0.75 (0.30-0.82) x10^3/uL Absolute Nucleated RBC 0.00 (0.00-0.012) x10^3u/L Lymphocytes % 14.7 L (21.8-53.1) % Monocytes % 9.1 (5.3-12.2) % Eosinophils % 10.8 H (0.8-7.0) % Basophils % 1.1 (0.2-1.2) % Absolute Granulocytes 5.21 (1.78-5.38) x10^3/uL Basophils # 0.09 H (0.01-0.08) x10^3/uL PT (9.4-12.5) SECONDS INR (0.8-3.0) APTT (25.1-36.5) SECONDS D-Dimer 2.30 H* (0.0-0.50) mg/L Sodium 138 (135-145) mmol/L Potassium 4.8 (3.5-5.1) mmol/L Chloride 103 (98-107) mmol/L Carbon Dioxide 29 (22-30) mmol/L Anion Gap 10.0 (5-15) MEQ/L BUN 17 (9-20) mg/dL Creatinine 0.99 (0.66-1.25) mg/dL Estimated GFR 91.1 ML/MIN Glucose 111 H (74-106) mg/dL Calcium 9.6 (8.4-10.2) mg/dL Total Bilirubin 0.20 (0.2-1.3) mg/dL AST 22 (17-59) U/L ALT 15 (0-50) U/L Alkaline Phosphatase 77 (38-126) U/L Troponin I (0.000-0.033) ng/mL Serum Total Protein 7.0 (6.3-8.2) g/dL Albumin 3.9 (3.5-5.0) g/dL TSH 3rd Generation (0.470-4.680) mIU/L Urine Color (Yellow) Urine Appearance (Clear) Urine pH (4.6-8.0) Ur Specific [place] (1.005-1.030) Urine Protein (Negative) Urine Glucose (UA) (Negative) mg/dL Urine Ketones (Negative) Urine Blood (Negative) Urine Nitrite (Negative) Urine Bilirubin (Negative) Urine Urobilinogen (0.2) mg/dL Ur Leukocyte Esterase (Negative) U Hyaline Cast (Auto) (0-2) /LPF Urine Microscopic RBC (0-5) /HPF Urine Microscopic WBC (0-5) /HPF Ur Epithelial Cells (None Seen) /HPF Urine Bacteria (None Seen) /HPF Urine Culture Reflexed (NO) Urine Opiates Level (NEGATIVE) Ur Methadone (NEGATIVE) Urine Barbiturates (NEGATIVE) Ur Phencyclidine (PCP) (NEGATIVE) Urine Amphetamine (NEGATIVE) U Benzodiazepine Level (NEGATIVE) Urine Cocaine (NEGATIVE) Urine Marijuana (THC) (NEGATIVE) 06/13/24 06/13/24 06/13/24 Range/Units 05:14 08:38 12:11 WBC (4.23-9.07) x10^3/uL RBC (4.63-6.08) x10^6/uL Hgb (13.7-17.5) g/dL Hct (40.1-51.0) % MCV (79.0-92.2) fL MCH (25.7-32.2) pg MCHC (32.3-36.5) g/dL RDW (11.6-14.4) % Plt Count (163-337) x10^3/uL MPV (9.4-12.4) fL Gran % (34.0-67.9) % Immature Gran % (Auto) (0.001-0.429) % Nucleat RBC Rel Count (0.00-0.2) % Eos # (Auto) (0.04-0.54) x10^3/uL Immature Gran # (Auto) (0.001-0.031) x10^3u/L Absolute Lymphs (auto) (1.32-3.57) x10^3/uL Absolute Monos (auto) (0.30-0.82) x10^3/uL Absolute Nucleated RBC (0.00-0.012) x10^3u/L Lymphocytes % (21.8-53.1) % Monocytes % (5.3-12.2) % Eosinophils % (0.8-7.0) % Basophils % (0.2-1.2) % Absolute Granulocytes (1.78-5.38) x10^3/uL Basophils # (0.01-0.08) x10^3/uL PT (9.4-12.5) SECONDS INR (0.8-3.0) APTT (25.1-36.5) SECONDS D-Dimer (0.0-0.50) mg/L Sodium (135-145) mmol/L Potassium (3.5-5.1) mmol/L Chloride (98-107) mmol/L Carbon Dioxide (22-30) mmol/L Anion Gap (5-15) MEQ/L BUN (9-20) mg/dL Creatinine (0.66-1.25) mg/dL Estimated GFR ML/MIN Glucose (74-106) mg/dL Calcium (8.4-10.2) mg/dL Total Bilirubin (0.2-1.3) mg/dL AST (17-59) U/L ALT (0-50) U/L Alkaline Phosphatase (38-126) U/L Troponin I < 0.012 < 0.012 (0.000-0.033) ng/mL Serum Total Protein (6.3-8.2) g/dL Albumin (3.5-5.0) g/dL TSH 3rd Generation (0.470-4.680) mIU/L Urine Color Yellow (Yellow) Urine Appearance Clear (Clear) Urine pH 6.5 (4.6-8.0) Ur Specific [place] >=1.030 A (1.005-1.030) Urine Protein Negative (Negative) Urine Glucose (UA) Negative (Negative) mg/dL Urine Ketones Negative (Negative) Urine Blood Negative (Negative) Urine Nitrite Negative (Negative) Urine Bilirubin Negative (Negative) Urine Urobilinogen 0.2 (0.2) mg/dL Ur Leukocyte Esterase Negative (Negative) U Hyaline Cast (Auto) NONE SEEN (0-2) /LPF Urine Microscopic RBC 0-2 (0-5) /HPF Urine Microscopic WBC 0-2 (0-5) /HPF Ur Epithelial Cells None Seen (None Seen) /HPF Urine Bacteria None Seen (None Seen) /HPF Urine Culture Reflexed NO (NO) Urine Opiates Level (NEGATIVE) Ur Methadone (NEGATIVE) Urine Barbiturates (NEGATIVE) Ur Phencyclidine (PCP) (NEGATIVE) Urine Amphetamine (NEGATIVE) U Benzodiazepine Level (NEGATIVE) Urine Cocaine (NEGATIVE) Urine Marijuana (THC) (NEGATIVE) 06/13/24 06/13/24 06/13/24 Range/Units 12:11 12:35 12:35 WBC (4.23-9.07) x10^3/uL RBC (4.63-6.08) x10^6/uL Hgb (13.7-17.5) g/dL Hct (40.1-51.0) % MCV (79.0-92.2) fL MCH (25.7-32.2) pg MCHC (32.3-36.5) g/dL RDW (11.6-14.4) % Plt Count (163-337) x10^3/uL MPV (9.4-12.4) fL Gran % (34.0-67.9) % Immature Gran % (Auto) (0.001-0.429) % Nucleat RBC Rel Count (0.00-0.2) % Eos # (Auto) (0.04-0.54) x10^3/uL Immature Gran # (Auto) (0.001-0.031) x10^3u/L Absolute Lymphs (auto) (1.32-3.57) x10^3/uL Absolute Monos (auto) (0.30-0.82) x10^3/uL Absolute Nucleated RBC (0.00-0.012) x10^3u/L Lymphocytes % (21.8-53.1) % Monocytes % (5.3-12.2) % Eosinophils % (0.8-7.0) % Basophils % (0.2-1.2) % Absolute Granulocytes (1.78-5.38) x10^3/uL Basophils # (0.01-0.08) x10^3/uL PT (9.4-12.5) SECONDS INR (0.8-3.0) APTT (25.1-36.5) SECONDS D-Dimer (0.0-0.50) mg/L Sodium (135-145) mmol/L Potassium (3.5-5.1) mmol/L Chloride (98-107) mmol/L Carbon Dioxide (22-30) mmol/L Anion Gap (5-15) MEQ/L BUN (9-20) mg/dL Creatinine (0.66-1.25) mg/dL Estimated GFR ML/MIN Glucose (74-106) mg/dL Calcium (8.4-10.2) mg/dL Total Bilirubin (0.2-1.3) mg/dL AST (17-59) U/L ALT (0-50) U/L Alkaline Phosphatase (38-126) U/L Troponin I < 0.012 (0.000-0.033) ng/mL Serum Total Protein (6.3-8.2) g/dL Albumin (3.5-5.0) g/dL TSH 3rd Generation 2.016 (0.470-4.680) mIU/L Urine Color (Yellow) Urine Appearance (Clear) Urine pH (4.6-8.0) Ur Specific [place] (1.005-1.030) Urine Protein (Negative) Urine Glucose (UA) (Negative) mg/dL Urine Ketones (Negative) Urine Blood (Negative) Urine Nitrite (Negative) Urine Bilirubin (Negative) Urine Urobilinogen (0.2) mg/dL Ur Leukocyte Esterase (Negative) U Hyaline Cast (Auto) (0-2) /LPF Urine Microscopic RBC (0-5) /HPF Urine Microscopic WBC (0-5) /HPF Ur Epithelial Cells (None Seen) /HPF Urine Bacteria (None Seen) /HPF Urine Culture Reflexed (NO) Urine Opiates Level NEGATIVE (NEGATIVE) Ur Methadone NEGATIVE (NEGATIVE) Urine Barbiturates NEGATIVE (NEGATIVE) Ur Phencyclidine (PCP) NEGATIVE (NEGATIVE) Urine Amphetamine NEGATIVE (NEGATIVE) U Benzodiazepine Level NEGATIVE (NEGATIVE) Urine Cocaine NEGATIVE (NEGATIVE) Urine Marijuana (THC) NEGATIVE (NEGATIVE) 06/13/24 06/13/24 06/13/24 Range/Units 15:55 15:55 20:00 WBC 6.9 (4.23-9.07) x10^3/uL RBC 4.39 L (4.63-6.08) x10^6/uL Hgb 13.2 L (13.7-17.5) g/dL Hct 40.2 (40.1-51.0) % MCV 91.6 (79.0-92.2) fL MCH 30.1 (25.7-32.2) pg MCHC 32.8 (32.3-36.5) g/dL RDW 13.0 (11.6-14.4) % Plt Count 267 (163-337) x10^3/uL MPV 9.6 (9.4-12.4) fL Gran % (34.0-67.9) % Immature Gran % (Auto) (0.001-0.429) % Nucleat RBC Rel Count (0.00-0.2) % Eos # (Auto) (0.04-0.54) x10^3/uL Immature Gran # (Auto) (0.001-0.031) x10^3u/L Absolute Lymphs (auto) (1.32-3.57) x10^3/uL Absolute Monos (auto) (0.30-0.82) x10^3/uL Absolute Nucleated RBC (0.00-0.012) x10^3u/L Lymphocytes % (21.8-53.1) % Monocytes % (5.3-12.2) % Eosinophils % (0.8-7.0) % Basophils % (0.2-1.2) % Absolute Granulocytes (1.78-5.38) x10^3/uL Basophils # (0.01-0.08) x10^3/uL PT 10.8 (9.4-12.5) SECONDS INR 0.99 (0.8-3.0) APTT 31.2 61.5 H (25.1-36.5) SECONDS D-Dimer (0.0-0.50) mg/L Sodium (135-145) mmol/L Potassium (3.5-5.1) mmol/L Chloride (98-107) mmol/L Carbon Dioxide (22-30) mmol/L Anion Gap (5-15) MEQ/L BUN (9-20) mg/dL Creatinine (0.66-1.25) mg/dL Estimated GFR ML/MIN Glucose (74-106) mg/dL Calcium (8.4-10.2) mg/dL Total Bilirubin (0.2-1.3) mg/dL AST (17-59) U/L ALT (0-50) U/L Alkaline Phosphatase (38-126) U/L Troponin I (0.000-0.033) ng/mL Serum Total Protein (6.3-8.2) g/dL Albumin (3.5-5.0) g/dL TSH 3rd Generation (0.470-4.680) mIU/L Urine Color (Yellow) Urine Appearance (Clear) Urine pH (4.6-8.0) Ur Specific [place] (1.005-1.030) Urine Protein (Negative) Urine Glucose (UA) (Negative) mg/dL Urine Ketones (Negative) Urine Blood (Negative) Urine Nitrite (Negative) Urine Bilirubin (Negative) Urine Urobilinogen (0.2) mg/dL Ur Leukocyte Esterase (Negative) U Hyaline Cast (Auto) (0-2) /LPF Urine Microscopic RBC (0-5) /HPF Urine Microscopic WBC (0-5) /HPF Ur Epithelial Cells (None Seen) /HPF Urine Bacteria (None Seen) /HPF Urine Culture Reflexed (NO) Urine Opiates Level (NEGATIVE) Ur Methadone (NEGATIVE) Urine Barbiturates (NEGATIVE) Ur Phencyclidine (PCP) (NEGATIVE) Urine Amphetamine (NEGATIVE) U Benzodiazepine Level (NEGATIVE) Urine Cocaine (NEGATIVE) Urine Marijuana (THC) (NEGATIVE) 06/13/24 Range/Units 23:45 WBC (4.23-9.07) x10^3/uL RBC (4.63-6.08) x10^6/uL Hgb (13.7-17.5) g/dL Hct (40.1-51.0) % MCV (79.0-92.2) fL MCH (25.7-32.2) pg MCHC (32.3-36.5) g/dL RDW (11.6-14.4) % Plt Count (163-337) x10^3/uL MPV (9.4-12.4) fL Gran % (34.0-67.9) % Immature Gran % (Auto) (0.001-0.429) % Nucleat RBC Rel Count (0.00-0.2) % Eos # (Auto) (0.04-0.54) x10^3/uL Immature Gran # (Auto) (0.001-0.031) x10^3u/L Absolute Lymphs (auto) (1.32-3.57) x10^3/uL Absolute Monos (auto) (0.30-0.82) x10^3/uL Absolute Nucleated RBC (0.00-0.012) x10^3u/L Lymphocytes % (21.8-53.1) % Monocytes % (5.3-12.2) % Eosinophils % (0.8-7.0) % Basophils % (0.2-1.2) % Absolute Granulocytes (1.78-5.38) x10^3/uL Basophils # (0.01-0.08) x10^3/uL PT (9.4-12.5) SECONDS INR (0.8-3.0) APTT 49.0 H (25.1-36.5) SECONDS D-Dimer (0.0-0.50) mg/L Sodium (135-145) mmol/L Potassium (3.5-5.1) mmol/L Chloride (98-107) mmol/L Carbon Dioxide (22-30) mmol/L Anion Gap (5-15) MEQ/L BUN (9-20) mg/dL Creatinine (0.66-1.25) mg/dL Estimated GFR ML/MIN Glucose (74-106) mg/dL Calcium (8.4-10.2) mg/dL Total Bilirubin (0.2-1.3) mg/dL AST (17-59) U/L ALT (0-50) U/L Alkaline Phosphatase (38-126) U/L Troponin I (0.000-0.033) ng/mL Serum Total Protein (6.3-8.2) g/dL Albumin (3.5-5.0) g/dL TSH 3rd Generation (0.470-4.680) mIU/L Urine Color (Yellow) Urine Appearance (Clear) Urine pH (4.6-8.0) Ur Specific [place] (1.005-1.030) Urine Protein (Negative) Urine Glucose (UA) (Negative) mg/dL Urine Ketones (Negative) Urine Blood (Negative) Urine Nitrite (Negative) Urine Bilirubin (Negative) Urine Urobilinogen (0.2) mg/dL Ur Leukocyte Esterase (Negative) U Hyaline Cast (Auto) (0-2) /LPF Urine Microscopic RBC (0-5) /HPF Urine Microscopic WBC (0-5) /HPF Ur Epithelial Cells (None Seen) /HPF Urine Bacteria (None Seen) /HPF Urine Culture Reflexed (NO) Urine Opiates Level (NEGATIVE) Ur Methadone (NEGATIVE) Urine Barbiturates (NEGATIVE) Ur Phencyclidine (PCP) (NEGATIVE) Urine Amphetamine (NEGATIVE) U Benzodiazepine Level (NEGATIVE) Urine Cocaine (NEGATIVE) Urine Marijuana (THC) (NEGATIVE) - Radiology Impressions Radiology Exams & Impressions: Radiology Procedures Category Date Time Status CHEST WITH CONTRAST [CT] Stat Exams 06/13/24 05:58 Completed ECHO W/2D AND DOPPLER [US] Routine Exams 06/13/24 11:10 Taken NECK WO CONTRAST [CT] Stat Exams 06/14/24 03:59 Taken Assessment/Plan (1) SOB (shortness of breath) Current Visit: Yes Status: Acute Assessment & Plan: Sudden onset of shortness of breath With diaphoresis and throat tightness in the setting of bilateral neck swelling, as per patient and staff, size of swelling is worse than admission Differential include allergic reaction/spontaneous hematoma in the setting of IV heparin Plan for emergent CT with contrast to rule out hematoma Will keep holding IV heparin Will consider Iv steroids/Benadryl/Pepcid cocktail Low threshold to be intubated for airway protection protection Discussed with staff and patient in detail Acute chest pain/ischemic cardiomyopathy ? Patient is getting transferred for left heart cath due to new finding of low ejection fraction on echo. Elevated D-dimer CT chest remained unremarkable for pulmonary embolism Thyromegaly CT showed markedly enlarged thyroid gland with bilateral lobes extending deep to generally Need further workup as outpatient Hypertensive crisis Patient admitted with high blood pressure but currently stable Continue blood pressure meds DVT prophylaxis SCD/keep holding IV heparin for now Time spent in the care of this pretty sick patient was more than 40 minutes including with [id number] televisit, chart review, coordination of care with patient and staff Code(s): R06.02 - SHORTNESS OF BREATH (2) Neck swelling Current Visit: Yes Status: Acute Code(s): R22.1 - LOCALIZED SWELLING, MASS AND LUMP, NECK
--- NOTE | 2024-06-14 05:15 | XRAY ---
CLINICAL HISTORY: neck swelling COMPARISON: 05/17/2024. TECHNIQUE: CT scan of the neck soft tissues was performed without intravenous contrast. Sagittal and coronal reconstructions were also obtained. One of the following dose reduction techniques were utilized for this exam: Automated exposure control, adjustment of the mA and/or kV according to patient size, use of iterative reconstruction. FINDINGS: Markedly enlarged both thyroid lobes and isthmus showing heterogenous CT texture seen splaying the sternomastoid muscles and causing focal contour bulge. The lower border of the gland lies at the upper margin of the manubrium sterni. No gross retrosternal extension. The esophagus is seen compressed between both thyroid lobes posteriorly. Both carotid sheath vessels are seen splayed laterally. No significant tracheal displacement or air column compromise. Normal appearance of the aerodigestive air column with no parapharyngeal masses. Normal appearance of the vocal cords, both pyriform sinuses and raquel-epiglottic folds. No glottic, supra- or infraglottic masses. Intact laryngeal skeleton. Multiple enlarged bilateral cervical and supraclavicular lymph nodes are noted the largest seen at the paratracheal group (level VIB) approximately measuring [address] appearance of the infrahyoid deep neck spaces. Normal CT appearance of the larynx, namely the supraglottic, glottic, and infra, glottic spaces. Unremarkable. Nasal and Vinayak pharyngeal mucosal spaces. Normal CT appearance of the submandibular and parotid salivary glands. The base of the tongue, the uvula, the epiglottis, and the vocal cords, are unremarkable. The visualized structures of the posterior fossa show no definite abnormality. Bilateral lung opacities show emphysematous changes. IMPRESSION: 1. Markedly enlarged both thyroid lobes and isthmus showing heterogenous CT texture causing focal contour bulge. No gross retrosternal extension. possibly multinodular goiter with multiple enlarged bilateral cervical and supraclavicular lymph nodes. Advice clinical and ultrasound correlation. 2. No interval changes. Electronically Signed by: Rodrigue Duarte MD. (06/14/2024 05:11:03 EDT)
[2024-06-14 05:31] LABS: Hematocrit 42.2 % (40.1-51.0); Mean Cell Volume 90.4 fL (79.0-92.2); Mean Corpuscular Hgb Concent. 33.2 g/dL (32.3-36.5); Mean Platelet Volume 9.8 fL (9.4-12.4); Platelet Count 278 x10^3/uL (163-337); Red Blood Count 4.67 x10^6/uL (4.63-6.08); Red Cell Distribution Width 13.2 % (11.6-14.4); White Blood Count 13.8 x10^3/uL (4.23-9.07)
[2024-06-14 05:56] LABS: ANION GAP 10.4 MEQ/L (5-15); Calcium 9.6 mg/dL (8.4-10.2); Creatinine 1 0.86 mg/dL (0.66-1.25); EST GLOMERULAR FILTRATION RATE 103.5 ML/MIN; Potassium 3.8 mmol/L (3.5-5.1)
[2024-06-14] MEDS: Zestril 20 MG PO SCH (09:11)
--- NOTE | 2024-06-14 10:51 | PCM.DS ---
Discharge Summary Date of Admission: 06/13/24 08:20 Date of Discharge: 06/14/24 Admitting Physician: JIMY ALICEA MD Consults: Consults on Case 06/13/24 11:10 Cardiology Consult [Notify Cdl B Driver of Admit] ROUTINE Primary Care Provider: KIMBERLI MARTINEZ Allergies Allergies No Known Drug Allergies Allergy (Verified 06/13/24 08:38) Hospital Summary - Hospital Course Hospital Course: 54 year old male with a pmhx of hypertension and migraines who presented to ED 06/13/24 with complaints of chest pain that started 06/12/24. He describes it as left sided, sharp (non-radiating) in characteristic, no aggravating or alleviating factors. No associated nausea, vomiting, diaphoresis, shortness of breath, headaches, or dizziness. Denies fever,cough,abdominal pain, NIEVES, dizziness, N/V/D. No similar episodes. Patient is a 1 PPD smoker. Pain is constant since yesterday, even after BP better. Upon arrival, patient was hypertensive with BP elevated as high as 207/118. Lab findings with elevated DDimer - CTA negative for PE. Mild cardiomegaly with left ventricular hypertrophy. EKG NS with LVH. Troponin WNL x 2. Patient given ASA and Nitro in ED. Plan for admission for CP ACS r/o. Denies orthopnea, PND, LE edema, syncope. Cardiology consulted and recommending transfer for unstable angina and reduced LVEF for [facility]. Will start heparin drip, ASA, and lipitor. Echo shows EF 40% with global hypokinesis but more pronounced in the septal wall. Patient has been accepted to [facility] and will transfer today Discharge Note New Diagnosis: Unstable angina Latest Assessment & Plan 2) Chest pain Current Visit: Yes Status: Acute Qualifiers: Chest pain type: chest pain due to myocardial ischemia Ischemic chest pain type: unstable angina pectoris Qualified Code(s): I20.0 - Unstable angina Assessment & Plan: - pt with unstable angina. Echo shows EF 40% with global hypokinesis but more pronounced in the septal wall - if not already given, give aspirin 325 mg once, then 81 mg daily - start heparin drip ACS protocol - lipitor 40 mg nightly - c/w BP control - Recommend transferring to tertiary care center for [facility] for unstable angina and reduced LVEF Code(s): R07.9 - CHEST PAIN, UNSPECIFIED (1) Chest pain Current Visit: Yes Status: Acute Assessment & Plan: -EKG and trop unremarkable -Echo -Repeat EKG in the a.m. 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 - Vitals & Intake/Output Vital Signs: Vital Signs Temperature 97.7 F 06/14/24 09:01 Pulse Rate 82 06/14/24 10:00 Respiratory Rate 30 H 06/14/24 10:00 Blood Pressure 166/102 06/14/24 10:00 O2 Sat by Pulse Oximetry 98 06/14/24 10:00 Intake & Output: Intake & Output 06/11/24 06/12/24 06/13/24 06/14/24 11:59 11:59 11:59 11:59 Intake Total 240 81 Output Total 300 Balance -60 81 Weight 68.7 kg 68.9 kg - Lab Result Diagrams: 06/14/24 05:20 06/14/24 05:20 Lab Results-Last 24 Hrs: Lab Results-Last 24 Hours 06/13/24 06/13/24 06/13/24 Range/Units 12:11 12:11 12:35 WBC (4.23-9.07) x10^3/uL RBC (4.63-6.08) x10^6/uL Hgb (13.7-17.5) g/dL Hct (40.1-51.0) % MCV (79.0-92.2) fL MCH (25.7-32.2) pg MCHC (32.3-36.5) g/dL RDW (11.6-14.4) % Plt Count (163-337) x10^3/uL MPV (9.4-12.4) fL PT (9.4-12.5) SECONDS INR (0.8-3.0) APTT (25.1-36.5) SECONDS Sodium (135-145) mmol/L Potassium (3.5-5.1) mmol/L Chloride (98-107) mmol/L Carbon Dioxide (22-30) mmol/L Anion Gap (5-15) MEQ/L BUN (9-20) mg/dL Creatinine (0.66-1.25) mg/dL Estimated GFR ML/MIN Glucose (74-106) mg/dL Calcium (8.4-10.2) mg/dL Troponin I < 0.012 (0.000-0.033) ng/mL TSH 3rd Generation (0.470-4.680) mIU/L Urine Color Yellow (Yellow) Urine Appearance Clear (Clear) Urine pH 6.5 (4.6-8.0) Ur Specific [place] >=1.030 A (1.005-1.030) Urine Protein Negative (Negative) Urine Glucose (UA) Negative (Negative) mg/dL Urine Ketones Negative (Negative) Urine Blood Negative (Negative) Urine Nitrite Negative (Negative) Urine Bilirubin Negative (Negative) Urine Urobilinogen 0.2 (0.2) mg/dL Ur Leukocyte Esterase Negative (Negative) U Hyaline Cast (Auto) NONE SEEN (0-2) /LPF Urine Microscopic RBC 0-2 (0-5) /HPF Urine Microscopic WBC 0-2 (0-5) /HPF Ur Epithelial Cells None Seen (None Seen) /HPF Urine Bacteria None Seen (None Seen) /HPF Urine Culture Reflexed NO (NO) Urine Opiates Level NEGATIVE (NEGATIVE) Ur Methadone NEGATIVE (NEGATIVE) Urine Barbiturates NEGATIVE (NEGATIVE) Ur Phencyclidine (PCP) NEGATIVE (NEGATIVE) Urine Amphetamine NEGATIVE (NEGATIVE) U Benzodiazepine Level NEGATIVE (NEGATIVE) Urine Cocaine NEGATIVE (NEGATIVE) Urine Marijuana (THC) NEGATIVE (NEGATIVE) 06/13/24 06/13/24 06/13/24 Range/Units 12:35 15:55 15:55 WBC 6.9 (4.23-9.07) x10^3/uL RBC 4.39 L (4.63-6.08) x10^6/uL Hgb 13.2 L (13.7-17.5) g/dL Hct 40.2 (40.1-51.0) % MCV 91.6 (79.0-92.2) fL MCH 30.1 (25.7-32.2) pg MCHC 32.8 (32.3-36.5) g/dL RDW 13.0 (11.6-14.4) % Plt Count 267 (163-337) x10^3/uL MPV 9.6 (9.4-12.4) fL PT 10.8 (9.4-12.5) SECONDS INR 0.99 (0.8-3.0) APTT 31.2 (25.1-36.5) SECONDS Sodium (135-145) mmol/L Potassium (3.5-5.1) mmol/L Chloride (98-107) mmol/L Carbon Dioxide (22-30) mmol/L Anion Gap (5-15) MEQ/L BUN (9-20) mg/dL Creatinine (0.66-1.25) mg/dL Estimated GFR ML/MIN Glucose (74-106) mg/dL Calcium (8.4-10.2) mg/dL Troponin I (0.000-0.033) ng/mL TSH 3rd Generation 2.016 (0.470-4.680) mIU/L Urine Color (Yellow) Urine Appearance (Clear) Urine pH (4.6-8.0) Ur Specific [place] (1.005-1.030) Urine Protein (Negative) Urine Glucose (UA) (Negative) mg/dL Urine Ketones (Negative) Urine Blood (Negative) Urine Nitrite (Negative) Urine Bilirubin (Negative) Urine Urobilinogen (0.2) mg/dL Ur Leukocyte Esterase (Negative) U Hyaline Cast (Auto) (0-2) /LPF Urine Microscopic RBC (0-5) /HPF Urine Microscopic WBC (0-5) /HPF Ur Epithelial Cells (None Seen) /HPF Urine Bacteria (None Seen) /HPF Urine Culture Reflexed (NO) Urine Opiates Level (NEGATIVE) Ur Methadone (NEGATIVE) Urine Barbiturates (NEGATIVE) Ur Phencyclidine (PCP) (NEGATIVE) Urine Amphetamine (NEGATIVE) U Benzodiazepine Level (NEGATIVE) Urine Cocaine (NEGATIVE) Urine Marijuana (THC) (NEGATIVE) 06/13/24 06/13/24 06/14/24 Range/Units 20:00 23:45 05:20 WBC 13.8 H (4.23-9.07) x10^3/uL RBC 4.67 (4.63-6.08) x10^6/uL Hgb 14.0 (13.7-17.5) g/dL Hct 42.2 (40.1-51.0) % MCV 90.4 (79.0-92.2) fL MCH 30.0 (25.7-32.2) pg MCHC 33.2 (32.3-36.5) g/dL RDW 13.2 (11.6-14.4) % Plt Count 278 (163-337) x10^3/uL MPV 9.8 (9.4-12.4) fL PT (9.4-12.5) SECONDS INR (0.8-3.0) APTT 61.5 H 49.0 H (25.1-36.5) SECONDS Sodium (135-145) mmol/L Potassium (3.5-5.1) mmol/L Chloride (98-107) mmol/L Carbon Dioxide (22-30) mmol/L Anion Gap (5-15) MEQ/L BUN (9-20) mg/dL Creatinine (0.66-1.25) mg/dL Estimated GFR ML/MIN Glucose (74-106) mg/dL Calcium (8.4-10.2) mg/dL Troponin I (0.000-0.033) ng/mL TSH 3rd Generation (0.470-4.680) mIU/L Urine Color (Yellow) Urine Appearance (Clear) Urine pH (4.6-8.0) Ur Specific [place] (1.005-1.030) Urine Protein (Negative) Urine Glucose (UA) (Negative) mg/dL Urine Ketones (Negative) Urine Blood (Negative) Urine Nitrite (Negative) Urine Bilirubin (Negative) Urine Urobilinogen (0.2) mg/dL Ur Leukocyte Esterase (Negative) U Hyaline Cast (Auto) (0-2) /LPF Urine Microscopic RBC (0-5) /HPF Urine Microscopic WBC (0-5) /HPF Ur Epithelial Cells (None Seen) /HPF Urine Bacteria (None Seen) /HPF Urine Culture Reflexed (NO) Urine Opiates Level (NEGATIVE) Ur Methadone (NEGATIVE) Urine Barbiturates (NEGATIVE) Ur Phencyclidine (PCP) (NEGATIVE) Urine Amphetamine (NEGATIVE) U Benzodiazepine Level (NEGATIVE) Urine Cocaine (NEGATIVE) Urine Marijuana (THC) (NEGATIVE) 06/14/24 06/14/24 06/14/24 Range/Units 05:20 05:20 07:43 WBC (4.23-9.07) x10^3/uL RBC (4.63-6.08) x10^6/uL Hgb (13.7-17.5) g/dL Hct (40.1-51.0) % MCV (79.0-92.2) fL MCH (25.7-32.2) pg MCHC (32.3-36.5) g/dL RDW (11.6-14.4) % Plt Count (163-337) x10^3/uL MPV (9.4-12.4) fL PT (9.4-12.5) SECONDS INR (0.8-3.0) APTT 29.1 35.7 (25.1-36.5) SECONDS Sodium 137 (135-145) mmol/L Potassium 3.8 D (3.5-5.1) mmol/L Chloride 103 (98-107) mmol/L Carbon Dioxide 27 (22-30) mmol/L Anion Gap 10.4 (5-15) MEQ/L BUN 14 (9-20) mg/dL Creatinine 0.86 (0.66-1.25) mg/dL Estimated GFR 103.5 ML/MIN Glucose 128 H (74-106) mg/dL Calcium 9.6 (8.4-10.2) mg/dL Troponin I (0.000-0.033) ng/mL TSH 3rd Generation (0.470-4.680) mIU/L Urine Color (Yellow) Urine Appearance (Clear) Urine pH (4.6-8.0) Ur Specific [place] (1.005-1.030) Urine Protein (Negative) Urine Glucose (UA) (Negative) mg/dL Urine Ketones (Negative) Urine Blood (Negative) Urine Nitrite (Negative) Urine Bilirubin (Negative) Urine Urobilinogen (0.2) mg/dL Ur Leukocyte Esterase (Negative) U Hyaline Cast (Auto) (0-2) /LPF Urine Microscopic RBC (0-5) /HPF Urine Microscopic WBC (0-5) /HPF Ur Epithelial Cells (None Seen) /HPF Urine Bacteria (None Seen) /HPF Urine Culture Reflexed (NO) Urine Opiates Level (NEGATIVE) Ur Methadone (NEGATIVE) Urine Barbiturates (NEGATIVE) Ur Phencyclidine (PCP) (NEGATIVE) Urine Amphetamine (NEGATIVE) U Benzodiazepine Level (NEGATIVE) Urine Cocaine (NEGATIVE) Urine Marijuana (THC) (NEGATIVE) - Radiology Exams Ordered Rad Exams-Entire Visit: Radiology Procedures Category Date Time Status CHEST WITH CONTRAST [CT] Stat Exams 06/13/24 05:58 Completed ECHO W/2D AND DOPPLER [US] Routine Exams 06/13/24 11:10 Taken NECK WO CONTRAST [CT] Stat Exams 06/14/24 03:59 Completed - Procedures and Test Procedures and Tests throughout Hospitalization: Therapy Orders & Screens 06/13/24 08:50 Smoking Cessation Education ONCE Comment: Diagnosis: CHEST PAIN, ACS Smoking Status: Current every day smoker How long have you smoked: 20 YEARS Have you smoked in the past 12 months: Yes Approximately how many cigarettes per day: 1 PACK Do you dip or chew tobacco: Yes 06/13/24 11:13 EKG REPEAT IN AM Comment: Diagnosis: CHEST PAIN, ACS Discharge Exam General Appearance: no apparent distress Neurologic Exam: alert, oriented x 3, cooperative Eye Exam: PERRL Ears, Nose, Throat Exam: normal ENT inspection Neck Exam: normal inspection Respiratory Exam: normal breath sounds, lungs clear Cardiovascular Exam: regular rate/rhythm, normal heart sounds Gastrointestinal/Abdomen Exam: soft, normal bowel sounds Male Genitalia Exam: deferred Rectal Exam: deferred Back Exam: normal inspection Extremity Exam: normal inspection Skin Exam: normal color Final Diagnosis/Problem List - Final Discharge Diagnosis/Problem (1) Unstable angina Current Visit: Yes Status: Acute (2) Chest pain Current Visit: Yes Status: Acute Code(s): R07.9 - CHEST PAIN, UNSPECIFIED (3) D-dimer, elevated Current Visit: Yes Status: Acute Code(s): R79.89 - OTHER SPECIFIED ABNORMAL FINDINGS OF BLOOD CHEMISTRY (4) Hypertension Current Visit: No Status: Acute Code(s): I10 - ESSENTIAL (PRIMARY) HYPERTENSION - Discharge Disposition: DC TO OTHER HOSP Condition: Stable Prescriptions: New Heparin 5000 Units/0.5 ml [Heparin 5000 Units/0.5 ml (High Risk Med)] 2,000 unit IV PRN PRN PRN Reason: PTT < 35 Nicotine 21 mg [Nicoderm CQ 21 MG] 21 mg TOP Q24H10 patch Pantoprazole 40 mg [Protonix 40 mg IV] 40 mg IV Q24H10 Acetaminophen 325 mg [Tylenol 325 mg] 650 mg PO Q6H PRN PRN tablet PRN Reason: Pain And/Or Fever Lisinopril 20 mg [Zestril 20 MG] 20 mg PO DAILY tablet Simvastatin 20Mg [Zocor 20Mg] 40 mg PO HS tablet Ondansetron HCl 4 mg/2 ml [Zofran 4 MG/2 ML VIAL] 4 mg IV Q6H PRN PRN PRN Reason: Nausea/Vomiting Continue Levothyroxine Sodium 50 mcg PO DAILY Follow up with: KIMBERLI MARTINEZ MD [Primary Care Provider] -
[2024-06-14 11:25] VITALS: TEMP 97.4
[2024-06-14 15:19] VITALS: BP 151/98
[2024-06-14 16:38] VITALS: PULSE 69; RESP 18; O2SAT 99
== END 2024-06-14 16:55 ==
LOC: ED 05:00 → MED SURG 08:20 → ICU 15:37
PROVIDERS: ADMIT Internal Medicine; ATTEND Internal Medicine
DX: R07.9 Chest pain, unspecified (principal); I20.0 Unstable angina; R79.89 Other specified abnormal findings of blood chemistry; I10 Essential (primary) hypertension; F17.200 Nicotine dependence, unspecified, uncomplicated; R22.1 Localized swelling, mass and lump, neck; R06.02 Shortness of breath; Z79.899 Other long term (current) drug therapy
CPT/HCPCS: 36000; 36415; 70490; 71260; 80048; 80053; 80307; 81001; 84443; 84484; 85025; 85027; 85379; 85610; 85730; 93005; 93041; 93268; 93306; 94760; 99285; J0360; J1200; J1644; J2270; J2919; Q3014; A9270-GY; G0378